=== PATIENT | male | born 1960 | race Caucasian/White ===

== ENCOUNTER → 2017-03-21 | Outpatient (CLI) | payer BC ==
[~2017-03-21] MED LIST: ACET-1311 PO; ALLO300T2 PO; CYAN100020 PO; FOLIC PO; GABA-113 PO; HYDR-5688 PO; LEVO50TA6 PO; METO50TA16 PO; NAPR1TAB9 PO; RISP0.5T10 PO; RSP1 PO; RXC5 PO; TRAZ50TA35 PO
[2017-03-21 13:22] LABS: BASO % 0.4 %; BASO ABS # 0.02 K/uL (0-0.2); COMPLETE YES; EOS % 1.8 %; HEMATOCRIT 43.4 % (42-52); IG% 0.2 %; LYMPH % 37.6 %; LYMPH ABS # 1.93 K/uL (1.2-3.4); MEAN CELL VOLUME 87.1 fL (80-100); MEAN CORPUSCULAR HEMOGLOBIN 28.9 pg (25-34); MEAN CORPUSCULAR HGB CONC 33.2 g/dl (32-36); MEAN PLATELET VOLUME 10.5 fL (7.4-10.4); MONO % 9.6 %; NEUT % 50.4 %; PLATELET COUNT 194 K/uL (130-400); RED BLOOD COUNT 4.98 M/uL (4.7-6.1); WHITE BLOOD COUNT 5.13 K/uL (4.8-10.8)
[2017-03-21 13:44] LABS: ALT/SGPT 22 U/L (12-78); AST/SGOT 15 U/L (15-37); BLOOD UREA NITROGEN 11 mg/dl (7-18); BUN/CREATININE RATIO 10.9 (10-20); CARBON DIOXIDE 27 mmol/L (21-32); CHLORIDE 109 mmol/L (98-107); GLUCOSE 85 mg/dl (70-99); POTASSIUM 3.8 mmol/L (3.5-5.1); SODIUM 142 mmol/L (136-145)
[2017-03-21 13:52] LABS: ALB/GLOB RATIO 1.2 (0.9-2); ALKALINE PHOSPHATASE 52 U/L (45-117); RHEUMATOID FACTOR < 10.0 U/mL (0-15)
[2017-03-26 16:22] LABS: 18KDIGG BAND NONREACTIVE (NONREACTIVE); 23KDIGG BAND NONREACTIVE (NONREACTIVE); 23KDIGM BAND NONREACTIVE (NONREACTIVE); 28KDIGG BAND NONREACTIVE (NONREACTIVE); 30KDIGG BAND NONREACTIVE (NONREACTIVE); 39KDIGG BAND NONREACTIVE (NONREACTIVE); 39KDIGM BAND NONREACTIVE (NONREACTIVE); 41KDIGG BAND REACTIVE (NONREACTIVE); 41KDIGM BAND NONREACTIVE (NONREACTIVE); 45KDIGG BAND NONREACTIVE (NONREACTIVE); 58KDIGG BAND NONREACTIVE (NONREACTIVE); 66KDIGG BAND NONREACTIVE (NONREACTIVE); 93KDIGG BAND NONREACTIVE (NONREACTIVE)
== END | disposition home or self-care (01) ==
LOC: C.LABMFLN 08:02
PROVIDERS: ATTEND Family Medicine
DX: M54.16 Radiculopathy, lumbar region (principal); M25.50 Pain in unspecified joint; R20.2 Paresthesia of skin; R53.83 Other fatigue

== ENCOUNTER → 2017-05-26 | Outpatient (CLI) | payer BC | END | disposition home or self-care (01) | LOC: C.LABMFLN 11:02 | PROVIDERS: ATTEND Family Medicine | DX: Z12.5 Encounter for screening for malignant neoplasm of prostate (principal) ==

== ENCOUNTER 2017-06-04 09:22 | Inpatient (IN) | payer BC, OTHER ==
[2017-05-14 12:13] VITALS: BMI 33.0
--- NOTE | 2017-05-14 12:49 | PAT Medication Instructions ---
Service Date May 14, 2017. Current Home Medication List Acetaminophen (Tylenol), 650 MG PO PRN Allopurinol (Zyloprim), 300 MG PO QAM Cyanocobalamin (Vitamin B12), 1,000 MCG PO QAM Gabapentin (Neurontin), 300 MG PO TID Hydrocodone/Acetaminophen 5MG/325MG ([place] 5MG/325MG), 1 TABLET PO QID PRN for N Levothyroxine Sodium (Levothyroxine Sodium), 1 TAB PO QAM Metoprolol Tartrate (Lopressor) (Lopressor), 50 MG PO QAM Naproxen (Aleve), 660 MG PO PRN Risperidone (Risperidone), 1 MG PO QAM Risperidone (Risperdal), 0.5 MG PO HS Trazodone Hcl (Trazodone), 150 MG PO HS [Folic], 400 MCG PO QAM Medication Instructions For Your Scheduled Surgery - Hold the following medications per surgeon's instructions: Naproxen (Aleve), 660 MG PO PRN - Hold the following medications the morning of surgery: [Folic], 400 MCG PO QAM Cyanocobalamin (Vitamin B12), 1,000 MCG PO QAM - Take the following medications the morning of surgery with a sip of water OTHERWISE NOTHING TO EAT OR DRINK AFTER MIDNIGHT: Hydrocodone/Acetaminophen 5MG/325MG ([place] 5MG/325MG), 1 TABLET PO QID PRN (may take if needed up to 4 hours prior to surgery) Acetaminophen (Tylenol), 650 MG PO PRN (may take if needed up to 4 hours prior to surgery) Gabapentin (Neurontin), 300 MG PO TID Allopurinol (Zyloprim), 300 MG PO QAM Levothyroxine Sodium (Levothyroxine Sodium), 1 TAB PO QAM Metoprolol Tartrate (Lopressor) (Lopressor), 50 MG PO QAM Risperidone (Risperidone), 1 MG PO QAM - Take the following medications as scheduled the night before surgery: Hydrocodone/Acetaminophen 5MG/325MG ([place] 5MG/325MG), 1 TABLET PO QID PRN Acetaminophen (Tylenol), 650 MG PO PRN Gabapentin (Neurontin), 300 MG PO TID Risperidone (Risperdal), 0.5 MG PO HS Trazodone Hcl (Trazodone), 150 MG PO HS If you have any questions please call us at [phone] or [phone] or [phone]
[2017-05-14 13:33] LABS: BASO % 0.4 %; BASO ABS # 0.03 K/uL (0-0.2); COMPLETE YES; EOS % 2.8 %; HEMATOCRIT 43.3 % (42-52); IG% 0.3 %; LYMPH % 30.4 %; LYMPH ABS # 2.05 K/uL (1.2-3.4); MEAN CELL VOLUME 87.7 fL (80-100); MEAN CORPUSCULAR HEMOGLOBIN 29.4 pg (25-34); MEAN CORPUSCULAR HGB CONC 33.5 g/dl (32-36); MONO % 5.5 %; NEUT % 60.6 %; PLATELET COUNT 207 K/uL (130-400); RED BLOOD COUNT 4.94 M/uL (4.7-6.1); WHITE BLOOD COUNT 6.75 K/uL (4.8-10.8)
--- NOTE | 2017-05-14 13:37 | DIAGNOSTIC IMAGING REPORT ---
TWO VIEW CHEST CLINICAL HISTORY: Preoperative examination. FINDINGS: PA and lateral chest radiographs are obtained. No prior studies are available for comparison at the time of dictation. The heart is mildly enlarged and there is atherosclerotic calcification of the thoracic aorta. The pulmonary vasculature is noncongested. The lungs and pleural spaces are clear. There is no pneumothorax. The bony thorax appears intact. IMPRESSION: Cardiac enlargement with no active disease in the chest. Electronically signed by: Ronnie Jade M.D. 05/14/2017 1:36 PM Dictated Date/Time: 05/14/2017 1:35 PM
[2017-05-14 13:52] LABS: BUN/CREATININE RATIO 11.2 (10-20); CREATININE 0.91 mg/dl (0.60-1.40); POTASSIUM 4.3 mmol/L (3.5-5.1)
[2017-05-14 13:55] LABS: URINE APPEARANCE CLEAR (CLEAR); URINE BILIRUBIN NEG (NEG); URINE COLOR YELLOW; URINE NITRITE NEG (NEG); URINE SPECIFIC GRAVITY 1.022 (1.000-1.030); UROBILINOGEN NEG (NEG); ZZUR CULT IF INDIC CLEAN CATCH NO
[2017-05-14 14:05] LABS: MANUAL MICROSCOPIC REQUIRED? NO; REVIEW REQ? NO
[2017-06-04] VITALS (9 sets, daily range): BP systolic 120–136; BP diastolic 68–85; PULSE 52–71; TEMP 36.3–36.7; O2SAT 92–100; Ht 175.3 cm; Wt 102.8 kg
[~2017-06-04] VITALS: Ht 175.3 cm; Wt 102.8 kg
[~2017-06-04 09:22] MED LIST changes: +CEFAZOLIN 2000 MG/60 ML D5W IV SCH; +LACTATED RINGER'S 1000ML 1,000 ML IV SCH; -RXC5 PO
[2017-06-04] MEDS ORDERED: BUPIVACAINE/EPINEPHRINE 0.5% MPF 1:200,000 30 ML VIAL ONE (09:51)
[2017-06-04] MEDS ORDERED: BACITRACIN 50000 UNIT VIAL ONE (09:51)
--- NOTE | 2017-06-04 09:51 | History & Physical Bridge Note ---
H&P Re-Evaluation Bridge Note: I have examined the patient, reviewed the History & Physical and in the interval since the performance of the History & Physical I have noted the following changes of clinical significance: No changes noted
--- NOTE | 2017-06-04 09:52 | History and Physical ---
History & Physical Date Jun 04, 2017. Chief Complaint Back and leg pain History of Present Illness The patient is a 57 year old male with complaints of back and leg pain Additional History Hepatic Disease: No Endocrine Disorder: No Kidney Disease: No Hypertension: No Heart Disease: No Bleeding Tendencies: No Infectious Diseases: No Allergies Coded Allergies: Statins (Unverified Allergy, Unknown, MUSCLE ACHES, 05/14/17) Home Medications Scheduled Acetaminophen (Tylenol), 650 MG PO PRN Allopurinol (Zyloprim), 300 MG PO QAM Cyanocobalamin (Vitamin B12), 1,000 MCG PO QAM Gabapentin (Neurontin), 300 MG PO TID Levothyroxine Sodium (Levothyroxine Sodium), 1 TAB PO QAM Metoprolol Tartrate (Lopressor) (Lopressor), 50 MG PO QAM Naproxen (Aleve), 660 MG PO PRN Risperidone (Risperidone), 1 MG PO QAM Risperidone (Risperdal), 0.5 MG PO HS Trazodone Hcl (Trazodone), 150 MG PO HS [Folic], 400 MCG PO QAM Scheduled PRN Hydrocodone/Acetaminophen 5MG/325MG ([place] 5MG/325MG), 1 TABLET PO QID PRN for N Physical Examination Skin: warm/dry, no rash Eyes: normal inspection, EOMI, sclerae normal ENT: normal ENT inspection, pharynx normal Head: normocephalic, atraumatic Neck: supple, no adenopathy, trachea midline Respiratory/Chest: lungs clear, normal breath sounds, no respiratory distress Cardiovascular: regular rate, rhythm, no edema, no murmur Abdomen / GI: normal bowel sounds, non tender Back: normal inspection Extremities: normal inspection, normal range of motion Neurologic/Psych: no motor/sensory deficits, alert, normal reflexes, oriented x 3 Diagnosis Lumbar spinal stenosis Plan of Treatment Lumbar decompression and fusion L5-S1
[2017-06-04] MEDS ORDERED: FENTANYL CITRATE INJ 50 MCG/1 ML 2 ML VIAL ONE ×3 (09:53→11:57)
[2017-06-04] MEDS ORDERED: MIDAZOLAM HCL 1 MG/ML 2ML VIAL ONE (09:53)
[2017-06-04] MEDS ORDERED: HYDROmorphone INJ 2 MG/ML SYR/VIAL ONE ×2 (10:49→12:18)
[2017-06-04] MEDS ORDERED: FLOSEAL HEMOSTATIC MATRIX 10ML TOP ONE (10:54)
[2017-06-04] MEDS ORDERED: HYDROmorphone INJ 1 MG/ML SYR IV PRN (11:15)
[2017-06-04] MEDS ORDERED: EpHEDrine SULFATE INJ 50 MG/ML AMP IV PRN (11:15)
[2017-06-04] MEDS ORDERED: ATROPINE SULFATE 0.1 MG/ML 5ML SYR IV PRN (11:15)
[2017-06-04] MEDS ORDERED: ONDANSETRON INJ 2 MG/ML 2 ML VIAL IV PRN ×2 (11:15→12:30)
[2017-06-04] MEDS ORDERED: SODIUM CHLORIDE 0.9% 1000ML 1,000 ML IV SCH (12:17)
[2017-06-04] MEDS ORDERED: LIDOCAINE HCL 2% 2 ML VIAL (20MG/ML) ONE (12:21)
[2017-06-04] MEDS ORDERED: GLYCOPYRROLATE INJ 0.2 MG/ML VIAL ONE (12:21)
[2017-06-04] MEDS ORDERED: KETOROLAC TROMETHAMINE 30 MG/ML VIAL ONE (12:21)
[2017-06-04] MEDS ORDERED: ROCURONIUM BROMIDE 10 MG/ML 5 ML VIAL IV ONE (12:21)
[2017-06-04] MEDS ORDERED: NEOSTIGMINE METHYLSULFATE 1 MG/ML 10ML VIAL ONE (12:21)
[2017-06-04] MEDS ORDERED: ONDANSETRON INJ 2 MG/ML 2 ML VIAL ONE ×2 (12:21)
[2017-06-04] MEDS ORDERED: PROPOFOL IV EMULSION 10 MG/ML 20 ML VIAL IV ONE (12:21)
[2017-06-04] MEDS ORDERED: DEXAMETHASONE SOD INJ 4 MG/ML VIAL ONE (12:21)
[2017-06-04] MEDS ORDERED: SOD PHOSPHATE/SOD BIPHOSPHATE ENEMA 132 ML BTL PR PRN (12:30)
[2017-06-04] MEDS ORDERED: hydrOXYzine HCL 25 MG TAB PO PRN (12:30)
[2017-06-04] MEDS ORDERED: NALOXONE HCL 0.4 MG/1 ML VIAL/CARP IV PRN ×2 (12:30)
[2017-06-04] MEDS ORDERED: DO NOT ADMINISTER FLU VACCINE PRN ×3 (12:30)
[2017-06-04] MEDS ORDERED: METOCLOPRAMIDE HCL INJ 5 MG/ML 2 ML VIAL IV PRN (12:30)
[2017-06-04] MEDS ORDERED: FAMOTIDINE 20 MG TAB PO PRN (12:30)
[2017-06-04] MEDS ORDERED: LORAZEPAM 0.5 MG TAB PO PRN (12:30)
[2017-06-04] MEDS ORDERED: DO NOT ADMINISTER PNEUMOCOCCAL VACCINE PRN ×2 (12:30)
[2017-06-04] MEDS ORDERED: HYDROmorphone HCL 0.5MG/ML 50 ML CASSETTE IV PRN (12:30)
[2017-06-04] MEDS ORDERED: ACETAMINOPHEN 500 MG TAB PO PRN (12:30)
[2017-06-04] MEDS ORDERED: PROMETHAZINE HCL INJ 12.5 MG in SODIUM CHLORIDE 0.9% 50ML 50 ML IV PRN (12:30)
[2017-06-04] MEDS ORDERED: ACETAMINOPHEN IV 100 ML IV PRN (12:30)
[2017-06-04] MEDS ORDERED: BISACODYL 10 MG SUPP PR PRN (12:30)
[2017-06-04] MEDS ORDERED: MAGNESIUM HYDROXIDE SUSP 30 ML UDC PO PRN (12:30)
[2017-06-04] MEDS ORDERED: LORAZEPAM INJ 0.5 MG in SYRINGE 0.75 ML IV PRN (12:30)
[2017-06-04] MEDS ORDERED: ALUMINUM/MAGNESIUM SUSP 30 ML UDC PO PRN (12:30)
--- NOTE | 2017-06-04 12:30 | [facility] Operative Report ---
Operative Report Operative Date Jun 04, 2017. Pre-Operative Diagnosis lumbar spinal stenosis Post-Operative Diagnosis lumbar spinal stenosis Procedure(s) Performed #1 lumbar decompression medial facetectomy foraminotomies L4 5 L5-S1. #2 posterior spinal fusion L5-S1. #3 placement posterior instrumentation L5-S1. #4 interbody fusion L5-S1. #5 placement peek cage 14 x 26 mm L5-S1. #6 placement of locally harvested morcellized autograft in the posterior gutters. #7 placement of osteo-amp in the interbody space and posterior lateral gutters. Surgeon Dr. Tessy Akers Text[employer] Cutting Machine Operator Surgeon(s) Rabia Dodd PA-C Estimated Blood Loss 175ml Findings Severe spinal stenosis Specimens none per surgeon Description of Procedure Patient was met with case discussed all questions are dressed. After informed consent he was taken to the operative suite underwent intubation placed in a prone position on the Fredo table on top Cesario frame. All bony prominences were well-padded eyes inspected to ensure there is no external pressure. This point the lumbar spine is prepped and draped nostril fashion. Sharp dissection with the assistance of Bovie cautery was performed onto an exposing the lamina and transverse processes of 5 and sacral alar bilaterally. From a caudal to cephalad fashion complete laminectomy of L5 partial laminectomy of L4 was performed addressing severe lateral recess and foraminal stenosis. Pedicle screws were then placed in the purposes sarthak placed. Through a transforaminal approach a right a complete discectomy was performed and plate created to subcortical bleeding bone and a 14 x 26 mm peek cage filled with ostial amp tapped in position. The rods were then compressed locked and final position bilaterally. The transverse processes of L5 and sacral alar burred to subcortical bleeding bone. The remaining bone graft was placed the posterior gutters. 15 round KATI drain inserted. Incision was then closed with 1 Vicryl in the fascia 2-0 Vicryl subcutaneous C 4 Monocryl for final skin closure Steri- Strip sterile dressing placed. Patient we can taken to PACU in a stable condition. Please note Jenni Eason was present at the entire procedure involved in patient positioning complex portions of the surgery and final skin closure. I attest to the content of the Intraoperative Record and any orders documented therein. Any exceptions are noted below.
[2017-06-04] MEDS ORDERED: HYDROmorphone HCL 0.5MG/ML 50 ML CASSETTE ONE ×2 (12:45→12:46)
[2017-06-04] MEDS: FENTANYL CITRATE INJ 50 MCG/1 ML 2 ML VIAL IV PRN ×2 (13:02→13:08)
--- NOTE | 2017-06-04 13:30 | DIAGNOSTIC IMAGING REPORT ---
Radiology LUMBAR SPINE 2 OR 3 VIEW CLINICAL HISTORY: 57 years-old Male presenting with L5-S1 DECOMPRESSION/FUSION. TECHNIQUE: 2 fluoroscopic spot image(s) obtained as part of an intraoperative procedure. COMPARISON: None. FINDINGS/IMPRESSION: Posterior bilateral transpedicular screw and sarthak fixation of L5-S1 with interbody spacer. Grossly normal anatomic alignment. Please see surgical report for further details. Fluoroscopy dosage (mGy): Not available. Fluoroscopy time: 17.6 seconds. Number of fluoroscopic spot images: 2. Electronically signed by: Tiago Pyle M.D. 06/04/2017 1:29 PM Dictated Date/Time: 06/04/2017 1:28 PM
--- NOTE | 2017-06-04 13:31 | Anesthesiology Progress Note ---
Anesthesia Post Op Note Date & Time Jun 04, 2017 at 13:31 Vital Signs Pain Intensity: 5 Vital Signs Past 12 Hours Date Time Temp Pulse Resp B/P (MAP) Pulse Ox O2 Delivery O2 Flow Rate FiO2 06/04/17 13:20 36.4 58 16 137/82 98 Nasal Cannula 4 06/04/17 13:10 61 14 138/86 99 Nasal Cannula 4 06/04/17 13:00 54 14 150/86 100 Oxymask 10 06/04/17 12:50 57 14 147/89 100 Oxymask 10 06/04/17 12:40 70 14 141/92 96 Oxymask 10 06/04/17 12:34 36 62 14 137/83 99 Oxymask 10 06/04/17 09:41 36.7 64 20 131/85 95 Notes Mental Status: alert / awake / arousable, participated in evaluation Pt Amnestic to Procedure: Yes Nausea / Vomiting: adequately controlled Pain: adequately controlled Airway Patency, RR, SpO2: stable & adequate BP & HR: stable & adequate Hydration State: stable & adequate Anesthetic Complications: no major complications apparent
[2017-06-04] MEDS: GABAPENTIN 300 MG CAP PO SCH ×2 (16:43→21:23)
[2017-06-04] MEDS: LACTATED RINGER'S 1000ML 1,000 ML IV SCH ×2 (16:44→21:24)
[2017-06-04] MEDS: DEXAMETHASONE INJ 6 MG in SYRINGE 0 ML IV SCH ×2 (16:44→23:36)
[2017-06-04] MEDS: CEFAZOLIN IV 2,000 MG in DEXTROSE 5% 50ML 50 ML IV SCH (18:11)
[2017-06-04] MEDS: DOCUSATE SODIUM/SENNA 50/8.6MG TAB PO SCH (21:23)
[2017-06-04] MEDS: TRAZODONE HCL 50 MG TAB PO SCH (21:24)
[2017-06-04] MEDS: RISPERIDONE 0.5 MG TAB PO SCH (21:24)
[2017-06-05] MEDS: LACTATED RINGER'S 1000ML 1,000 ML IV SCH (01:53)
[2017-06-05] MEDS: CEFAZOLIN IV 2,000 MG in DEXTROSE 5% 50ML 50 ML IV SCH (01:53)
[2017-06-05 03:50] VITALS: BP 125/75; PULSE 63; TEMP 36.5; O2SAT 93
[2017-06-05] MEDS: LEVOTHYROXINE 50 MCG TAB PO SCH (05:50)
[2017-06-05] MEDS ORDERED: OXYCODONE HCL IR 5 MG TAB (IMMEDIATE RELEASE) PO PRN (06:00)
[2017-06-05] MEDS ORDERED: DC PCA ONE (06:00)
[2017-06-05] MEDS ORDERED: HYDROmorphone INJ 0.5 MG/0.5 ML SYR IV PRN (06:00)
[2017-06-05] MEDS ORDERED: NURSING DECISION MEDICATION ORDER SCH (06:15)
[2017-06-05] MEDS: DEXAMETHASONE INJ 6 MG in SYRINGE 0 ML IV SCH (07:18)
[2017-06-05 07:31] VITALS: BP 124/73; PULSE 55; TEMP 36.6; O2SAT 94
[2017-06-05] MEDS ORDERED: RXC5 PO (07:33)
--- NOTE | 2017-06-05 07:33 | Discharge Instructions ---
Discharge Instructions Date of Service Jun 05, 2017. Admission Reason for Admission: Lumbar Spinal Stenosis Discharge Discharge Diagnosis / Problem: lumbar stenosis Discharge Goals Goal(s): Improve function Activity Recommendations Activity Limitations: per Instructions/Follow-up section . Instructions / Follow-Up Instructions / Follow-Up ACTIVITY RECOMMENDATIONS: SELF CARE INSTRUCTIONS AFTER CERVICAL FUSIONS 1. No smoking. Smoking drastically decreases the chance of a solid fusion. 2. No bending, lifting more than 5 pounds, or twisting (roll like a log when turning in bed). 3. You may shower 3 days after surgery. Thoroughly dry wound. Do not soak in the tub. 4. Cervical collar: Must be worn at all times including sleeping. You may remove the brace only to bath, eat and if you are sitting in a recliner. 5. Please walk as much as you can for exercise. Gradually increase the distance that you walk as your endurance increases. SPECIAL CARE INSTRUCTIONS: VERY IMPORTANT TO READ AND REVIEW A. Do not take any anti-inflammatory medications (i.e. Indocin, Advil, Aspirin, Naprosyn, Aleve, Motrin, etc.) as these may inhibit the chance of a solid fusion. Tylenol is okay to take. B. Your surgical incision has been closed with a cosmetic suture under the skin that will dissolve in about 6 weeks. In 14 days, you can use a pair of clean scissors and cut the suture that is left outside of the skin at the ends of your incision. C. Complications are uncommon, but please contact us if you have any signs or symptoms of: 1. wound infection (fever higher than 102.5 degrees F, redness, separation of wound, drainage, or increasing pain from the incision) 2. blood clots in legs (pain, swelling, redness and warmth in legs) 3. urinary tract infection (fever higher than 102.5 degrees, burning upon urination or increased frequency of urination) 4. nerve problems (inability to walk on your toes or heels, numbness, loss of bowel or bladder control) 5. any other symptoms that concern you. D. Please call the office at if you have any concerns or questions about your operation or recovery. MANAGING PAIN AFTER SPINAL SURGERY 1. Narcotic medication is intended for short-term use and will be provided for surgical pain. Surgical pain usually lasts for a period of 4-6 weeks. Narcotic medication includes Percocet, Vicodin, Darvocet, Tylenol #3 or Lortab. 2. Longer-term pain is more appropriately treated with non-narcotic medication such as Tylenol ES. 3. Muscle spasm is not appropriately treated with narcotics. Muscle relaxers such as Soma, Flexeril or Skelaxin can be used along with Tylenol ES. 4. Remember that we all live with some "aches and pains". This is not unusual or uncommon after an injury or as we get older. 5. We will provide appropriate medication within the normal guidelines of their prescribed use. We will also be very cautious and aware of potential abuse and extended duration of patients' medication needs. 6. Please allow 2-3 days to process refills. Prescriptions will not be mailed but must be picked up at the office. FOLLOW UP VISIT: Keep your scheduled follow-up appointment. Any questions, please call the office at . Current Hospital Diet Patient's current hospital diet: Regular Diet Discharge Diet Recommended Diet: Regular Diet Procedures Procedures Performed: #1 lumbar decompression medial facetectomy foraminotomies L4 5 L5-S1. #2 posterior spinal fusion L5-S1. #3 placement posterior instrumentation L5-S1. #4 interbody fusion L5-S1. #5 placement peek cage 14 x 26 mm L5-S1. #6 placement of locally harvested morcellized autograft in the posterior gutters. #7 placement of osteo-amp in the interbody space and posterior lateral gutters. Pending Studies Studies pending at discharge: no Medical Emergencies . Who to Call and When: Medical Emergencies: If at any time you feel your situation is an emergency, please call 911 immediately. . Non-Emergent Contact Non-Emergency issues call your: Primary Care Provider . "Provider Documentation" section prepared by Deo Akers. . VTE Core Measure Inpt VTE Proph given/why not?: Paulino Rushing, SCD's
[2017-06-05 08:23] LABS: COMPLETE YES; HEMATOCRIT 41.1 % (42-52); IG% 0.2 %; LYMPH % 5.7 %; LYMPH ABS # 0.81 K/uL (1.2-3.4); MEAN CELL VOLUME 87.1 fL (80-100); MEAN CORPUSCULAR HEMOGLOBIN 29.2 pg (25-34); MEAN CORPUSCULAR HGB CONC 33.6 g/dl (32-36); MONO % 3.6 %; NEUT % 90.5 %; PLATELET COUNT 201 K/uL (130-400); RED BLOOD COUNT 4.72 M/uL (4.7-6.1); WHITE BLOOD COUNT 14.25 K/uL (4.8-10.8)
[2017-06-05 08:58] LABS: BUN/CREATININE RATIO 14.2 (10-20); CALCIUM 9.3 mg/dl (8.5-10.1); CREATININE 0.97 mg/dl (0.60-1.40); POTASSIUM 3.9 mmol/L (3.5-5.1)
[2017-06-05] MEDS: METOPROLOL TARTRATE 50 MG TAB PO SCH (09:00)
[2017-06-05] MEDS: GABAPENTIN 300 MG CAP PO SCH ×3 (09:04→21:22)
[2017-06-05] MEDS: ALLOPURINOL 300 MG TAB PO SCH (09:04)
[2017-06-05] MEDS: RISPERIDONE 1 MG TAB PO SCH (09:04)
[2017-06-05 09:09] VITALS: BP 120/70; PULSE 58
[2017-06-05 11:49] VITALS: BP 131/71; PULSE 61; TEMP 36.4; O2SAT 97
[2017-06-05] MEDS ORDERED: KETOROLAC TROMETHAMINE 30 MG/ML VIAL IV PRN (12:15)
--- NOTE | 2017-06-05 12:22 | Anesthesiology Progress Note ---
Anesthesia Post Op Note Date & Time Jun 05, 2017 at 12:21 Vital Signs Pain Intensity: 2.0 Vital Signs Past 12 Hours Date Time Temp Pulse Resp B/P (MAP) Pulse Ox O2 Delivery O2 Flow Rate FiO2 06/05/17 11:49 36.4 61 16 131/71 (91) 97 Room Air 06/05/17 09:09 58 120/70 (87) 06/05/17 07:31 36.6 55 16 124/73 (90) 94 Room Air 06/05/17 07:15 Room Air 06/05/17 03:50 36.5 63 16 125/75 (92) 93 Room Air Notes Mental Status: alert / awake / arousable, participated in evaluation Pt Amnestic to Procedure: Yes Nausea / Vomiting: adequately controlled Pain: adequately controlled Airway Patency, RR, SpO2: stable & adequate BP & HR: stable & adequate Hydration State: stable & adequate Anesthetic Complications: no major complications apparent
--- NOTE | 2017-06-05 13:51 | Progress Note ---
Progress Note Date of Service Jun 05, 2017. Progress Note Patient's back pain is controlled leg pain improved signs stable. KATI drain decreased improperly. Exam is good strength testing appears comfortable. Assessment status post lumbar depression fusion replant this time we'll continue to advance physical therapy and consider discharge home tomorrow.
[2017-06-05 15:01] VITALS: BP 146/79; PULSE 65; TEMP 36.7; O2SAT 97
[2017-06-05] MEDS: DOCUSATE SODIUM/SENNA 50/8.6MG TAB PO SCH (21:44)
[2017-06-05] MEDS: RISPERIDONE 0.5 MG TAB PO SCH (21:44)
[2017-06-05] MEDS: TRAZODONE HCL 50 MG TAB PO SCH (21:44)
[2017-06-05 23:04] VITALS: BP 130/72; PULSE 67; TEMP 36.5; O2SAT 93
[2017-06-06] MEDS: POLYETHYLENE (MIRALAX) 17 GM PACK PO SCH ×2 (05:39→11:55)
[2017-06-06] MEDS: LEVOTHYROXINE 50 MCG TAB PO SCH (05:39)
[2017-06-06 07:41] VITALS: BP 144/84; PULSE 60; TEMP 36.5; O2SAT 95
[2017-06-06] MEDS: ALLOPURINOL 300 MG TAB PO SCH (08:11)
[2017-06-06] MEDS: RISPERIDONE 1 MG TAB PO SCH (08:11)
[2017-06-06] MEDS: METOPROLOL TARTRATE 50 MG TAB PO SCH (08:11)
[2017-06-06] MEDS: GABAPENTIN 300 MG CAP PO SCH ×2 (08:11→13:31)
[2017-06-06 10:07] VITALS: BP 144/84; PULSE 60; TEMP 36.5; O2SAT 95
--- NOTE | 2017-06-06 12:35 | Discharge Summary ---
Orthopedic Discharge Summary Admission Date/Reason Jun 04, 2017 at 09:30 Lumbar Spinal Stenosis. Discharge Date/Disposition Jun 06, 2017 Home with services Diagnosis Principal Diagnosis: Lumbar spinal stenosis Admission Physical Exam As per Admitting History & Physical. Hospital Course Patient underwent lumbar decompression fusion tolerated this well as taken to the orthopedic 4 postop we. Postop day #1 is up and ambulatory leg symptoms markedly improved progressed to postoperative day #2 and was subsequently discharged home. Discharge orders and instructions can be found the chart for further review. Discharge Instructions Please refer to the electronic Patient Visit Report (Discharge Instructions) for additional information.
== END 2017-06-06 13:54 | disposition home health service (06) | DRG 460 ==
LOC: C.ACU 09:22 → C.3E 09:30 → ENRESERV 13:08
PROVIDERS: ADMIT Orthopaedic Surgery Orthopaedic Surgery of the Spine; ATTEND Orthopaedic Surgery Orthopaedic Surgery of the Spine
PROC: 0ST40ZZ Resection of Lumbosacral Disc, Open Approach (ICD-10-PCS; principal; 2017-06-04 12:15)
PROC: 0SG30A1 (ICD-10-PCS; principal; 2017-06-04 12:15)
DX: M48.06 Spinal stenosis, lumbar region (principal); Z79.899 Other long term (current) drug therapy

== ENCOUNTER → 2017-11-19 | Outpatient (CLI) | payer BC ==
[~2017-11-19] MED LIST changes: -CEFAZOLIN 2000 MG/60 ML D5W IV SCH; -LACTATED RINGER'S 1000ML 1,000 ML IV SCH; -NAPR1TAB9 PO; +RXC5 PO
[2017-11-19 12:22] LABS: HEMATOCRIT 42.2 % (42-52); HEMOGLOBIN 14.5 g/dL (14.0-18.0); IG# 0.02 K/uL (0.00-0.02); LYMPH % 14.4 %; LYMPH ABS # 1.65 K/uL (1.2-3.4); MEAN CELL VOLUME 87.4 fL (80-100); MEAN CORPUSCULAR HGB CONC 34.4 g/dl (32-36); MEAN PLATELET VOLUME 10.8 fL (7.4-10.4); MONO % 4.7 %; MONO ABS # 0.54 K/uL (0.11-0.59); NEUT % 80.7 %; NEUT ABS # 9.21 K/uL (1.4-6.5); PLATELET COUNT 209 K/uL (130-400); RED CELL DISTRIBUTION WIDTH CV 13.2 % (11.5-14.5); RED CELL DISTRIBUTION WIDTH SD 42.2 fL (36.4-46.3); WHITE BLOOD COUNT 11.42 K/uL (4.8-10.8)
[2017-11-19 13:21] LABS: ALBUMIN 3.9 gm/dl (3.4-5.0); ALT/SGPT 22 U/L (12-78); AST/SGOT 17 U/L (15-37); BLOOD UREA NITROGEN 18 mg/dl (7-18); CALCIUM 8.8 mg/dl (8.5-10.1); CARBON DIOXIDE 25 mmol/L (21-32); CHOLESTEROL 229 mg/dl (0-200); CREATININE 0.96 mg/dl (0.60-1.40); GLUCOSE 95 mg/dl (70-99); POTASSIUM 3.7 mmol/L (3.5-5.1); SODIUM 139 mmol/L (136-145)
[2017-11-19 13:30] LABS: ALKALINE PHOSPHATASE 67 U/L (45-117); LDL CHOLESTEROL CALCULATED 149 mg/dl
== END | disposition home or self-care (01) ==
LOC: C.LABMFLN 08:55
PROVIDERS: ATTEND Family Medicine
DX: E78.00 Pure hypercholesterolemia, unspecified (principal); I10 Essential (primary) hypertension; E03.9 Hypothyroidism, unspecified; E53.8 Deficiency of other specified B group vitamins

== ENCOUNTER 2019-09-15 11:46 | Inpatient (IN) ==
--- NOTE | 2019-08-26 12:42 | PAT Medication Instructions ---
Medication Instructions Date of Service August 26, 2019 Home Medications Medication Instructions Recorded temazepam 30 mg capsule 30 mg PO HS #90 cap 05/28/19 allopurinol 300 mg tablet 300 mg PO QAM #90 tab 06/07/19 levothyroxine 50 mcg tablet 50 mcg PO QAM 90 Days #90 tab 07/12/19 cyanocobalamin (vitamin B-12) 1,000 mcg PO QAM folic acid 0.4 mg PO QAM temazepam 30 mg capsule 30 mg PO HS allopurinol 300 mg tablet 300 mg PO QAM levothyroxine 50 mcg tablet 50 mcg PO QAM metoprolol succinate 25 mg PO QAM risperidone 3 mg PO QAM rosuvastatin 10 mg PO QDD trazodone 75 mg PO HS DO NOT take the morning of surgery cyanocobalamin (vitamin B-12) 1,000 mcg PO QAM folic acid 0.4 mg PO QAM Take morning of surgery With a small sip of water, OTHERWISE NOTHING TO EAT OR DRINK AFTER MIDNIGHT: allopurinol 300 mg tablet 300 mg PO QAM levothyroxine 50 mcg tablet 50 mcg PO QAM metoprolol succinate 25 mg PO QAM risperidone 3 mg PO QAM Take evening before surgery temazepam 30 mg capsule 30 mg PO HS rosuvastatin 10 mg PO QDD trazodone 75 mg PO HS Other Notes If you have any questions please call us at [phone] or [phone] or [phone] or [phone]
--- NOTE | 2019-09-02 10:19 | Anesthesiology Consultation ---
Date of Service September 02, 2019 Assessment & Plan (1) Encounter for pre-operative examination: - Awaiting review of preop testing (labs, EKG, CXR). Chart Review Chart Review: Patient seen in Pre Admission Testing Teaching & Discussion Pre-Anesthesia Teaching/Discussion Notes: Instructed NPO after midnight before surgery,except medications with 15 cc of water. Medication instructions provided according to the PAT guidelines. History Surgery Operation Date: 09/15/19 14:35 Proposed Procedures p L4-L5 Decompression Fusion L5-S1 Hardware Removal, Spinal Cord Monitoring - Deo Akers DO Height/Weight Height: 5 ft 10 in Weight: 114.4 kg Allergies Allergy/AdvReac Type Severity Reaction Status Date / Time [id number] Reductase Allergy Unknown MUSCLE Verified 08/26/19 08:10 Inhibitor ACHES Medications Home Medications Medication Instructions Recorded Confirmed Last Taken cyanocobalamin (vitamin B-12) 1,000 mcg PO QAM #0 05/14/17 08/26/19 06/08/18 08:00 folic acid 0.4 mg PO QAM #0 05/14/17 08/26/19 06/08/18 08:00 allopurinol 300 mg tablet 300 mg PO QAM #90 tab 06/07/19 08/26/19 Unknown levothyroxine 50 mcg tablet 50 mcg PO QAM 90 Days #90 tab 07/12/19 08/26/19 Unknown metoprolol succinate 25 mg PO QAM 08/26/19 08/26/19 Unknown risperidone 3 mg PO QAM 08/26/19 08/26/19 Unknown rosuvastatin 10 mg PO QDD 08/26/19 08/26/19 Unknown trazodone 75 mg PO HS 08/26/19 08/26/19 Unknown temazepam 30 mg capsule 30 mg PO HS #90 cap 08/27/19 Unknown Past Medical History Medical History Anxiety Depression Gout Hypertension Hypothyroidism Lumbar stenosis with neurogenic claudication Obesity Osteoarthritis Exercise / Class Metabolic Activity II 4-5 Yardwork/Stairs/Walk up hill Past Family History Family History Other Heart disease Past Surgical History Surgical History History of arthroscopy R/L KNEE History of cardiac cath 04/2018 ([facility])= NO STENTS History of carpal tunnel release R/L History of colonoscopy History of dental surgery History of lumbar fusion L5-S1 decompression/fusion: Grade view 1, MAC#3, ETT 8.0 at [facility] History of tonsillectomy History of total knee replacement B/L TKA: 06/11/18: SAB X3 + PNB, Paramedial level L3 (attempt x 2 midline without success) Hx of basal cell carcinoma excision [facility] Hx of decompression of ulnar nerve RIGHT Hx of rotator cuff surgery LEFT Past Anesthesia History No Hx of Anesthesia Complications and No Family Hx of Anesthesia Complications History of PONV No Hx of PONV and No Hx of Motion Sickness Social History Smoking Status: Never smoker Do You Dip or Chew Tobacco: No Hx Alcohol Use: Yes Alcohol type: beer alcohol intake frequency: 3 or more drinks per day (2-3 beers/night during weekdays, 4-5 beers throughout the day during weekends) Hx Substance Use: No substance use type: does not use Review of Systems Patient denies chest pain, shortness of breath, dyspnea on exertion, reflux, cough, wheezing, palpitations. Physical Exam Vital Signs VITALS BP 121/78 P 55 TEMP 98.0 SP02 96%RA RESP 18 PHYSICAL Full neck and c-spine range of motion. Full TMJ range of motion. TMD3.5 finger breaths Mallampati Score 3 Dentition: intact, temporary crown on upper left side (permanent to be placed 09/09/18- patient states he will make surgeon's office aware) upper front crown, lower front permanent implant Lungs: clear throughout to auscultation Cardiac: regular rate and rhythm, no murmurs noted Spine: normal Carotid arteries: negative bruit Extremities: no edema Testing Stress Test Date: 03/09/18 Type: DSE Resting EF: 64% Resting LV Function: mildly abnormal (Grade I) Normal rate and BP response to dobutamine infustion, but did have chest discomfort during peak infusion. All discomfort resolved in recovery. No significant ST changes noted during peak infusion. Occasional PVC's were noted with stress. Occasional PAC's were noted during stress. The stress test was terminated due to target heart rate being achieved. Mild TR Cardiac Catheterization Date: 04/09/18 Mild luminal irregularities in RCA. No obstructive coronary artery disease. S/P uncomplicated right radial artery access.
--- NOTE | 2019-09-02 11:04 | XRay Report ---
XR chest Pre-admission PA/Lat CLINICAL HISTORY: Preoperative chest COMPARISON STUDY: 05/18/2018 FINDINGS: The heart is the upper limits of normal in size. There is no failure. There is no focal pul monary consolidation. There are no pleural effusions. Degenerative changes are present within the sung ruthie spine.[ IMPRESSION: No active disease in the chest. ACT 112: Negative or not required by law. Electronically signed by: Jeremiah Lucero M.D. 09/02/2019 11:02 AM
[2019-09-02 12:35] LABS: Appearance Urine Clear (Clear); Bilirubin Urine Negative (Negative); Blood Urine Negative (Negative); Color Urine Yellow; Glucose Urine UA Negative (Negative); Ketones Urine Negative (Negative); Leukocyte Esterase Urine Negative (Negative); Nitrite Urine Negative (Negative); Protein Urine Negative (Negative); Specific Gravity Urine 1.006 (1.000-1.030); Urobilinogen Urine Negative (Negative)
[2019-09-02 12:36] LABS: Basophils # (auto) 0.02 K/uL (0-0.2); Basophils % (auto) 0.4 %; Eosinophils # (auto) 0.22 K/uL (0-0.5); Eosinophils % (auto) 4.6 %; Immature Granulocytes # (auto) 0.01 K/uL (0.00-0.02); Immature Granulocytes % (auto) 0.2 %; Lymphocytes # (auto) 0.69 K/uL (1.2-3.4); Lymphocytes % (auto) 14.4 %; Mean Corpuscular Hemoglobin 30.4 pg (25-34); Mean Corpuscular Hgb Conc 34.1 g/dL (32-36); Mean Corpuscular Volume 89.2 fL (80-100); Mean Platelet Volume 10.3 fL (7.4-10.4); Monocytes # (auto) 0.32 K/uL (0.11-0.59); Monocytes % (auto) 6.7 %; Neutrophils # (auto) 3.53 K/uL (1.4-6.5); Neutrophils % (auto) 73.7 %; Platelet Count 188 K/uL (130-400); RDW Coefficient of Variation 12.6 % (11.5-14.5); RDW Standard Deviation 40.6 fL (36.4-46.3); Red Blood Count 4.93 M/uL (4.7-6.1); White Blood Count 4.79 K/uL (4.8-10.8)
[2019-09-02 12:42] LABS: BUN Creatinine Ratio 11.6 (10-20); Calcium 8.9 mg/dl (8.5-10.1); Creatinine Clr Calc Pharmacy 97.3 ml/min; Est GFR (African American) 92.6; Est GFR (Non-African American) 79.9; Potassium 4.1 mmol/L (3.5-5.1)
[2019-09-02 12:48] LABS: Partial Thromboplastin Time 25.9 Seconds (21.0-31.0); Prothrombin Time 10.6 Seconds (9.0-12.0)
[~2019-09-15 11:46] MED LIST changes: -ACET-1311 PO; +ACETAMINOPHEN 500 MG TAB PO SCH; -ALLO300T2 PO; +CEFAZOLIN 2000MG 2,000 MG/15 ML SYR IV SCH; -CYAN100020 PO; +CeleBREX 200 MG CAP PO SCH; -FOLIC PO; -GABA-113 PO; +GABAPENTIN 600 MG DOSE PO SCH; -HYDR-5688 PO; -LEVO50TA6 PO; +LR 15ML/HR IV SCH; -METO50TA16 PO; -RISP0.5T10 PO; -RSP1 PO; -RXC5 PO; -TRAZ50TA35 PO
[2019-09-15] MEDS ORDERED: MIDAZOLAM HCL 1 MG/ML 2ML VIAL ONE (12:52)
[2019-09-15] MEDS ORDERED: fentaNYL citrate 100 MCG/2 ML VIAL ONE (12:52)
--- NOTE | 2019-09-15 12:58 | History & Physical Bridge Note ---
Date of Service September 15, 2019 History & Physical Bridge Note I have examined the patient, reviewed the History & Physical and in the interval since the performance of the History & Physical I have noted the following changes of clinical significance: no changes noted
--- NOTE | 2019-09-15 12:59 | History & Physical Report ---
Date of Service September 15, 2019 Assessment & Plan (1) Neurogenic claudication due to lumbar spinal stenosis: L4-L5 decompression fusion L5-S1 hardware removal Present on Admission?: Yes History of Present Illness Chief Complaint: Back and leg pain Primary Care Provider: Ronnie Candelaria MD This is a 59-year-old male who presents with worsening back and leg pain. Failing extensive course of nonoperative care is here for surgical invention. Allergies Allergy/AdvReac Type Severity Reaction Status Date / Time Vhclvus-Rqt-Aza Reductase AdvReac Intermediate MUSCLE Verified 09/15/19 12:10 Inhibitor ACHES Home Medications Home Medications Medication Instructions Recorded Confirmed Type cyanocobalamin (vitamin B-12) 1,000 mcg PO QAM #0 05/14/17 09/15/19 History folic acid 0.4 mg PO QAM #0 05/14/17 09/15/19 History allopurinol 300 mg tablet 300 mg PO QAM #90 tab 06/07/19 09/15/19 Rx levothyroxine 50 mcg tablet 50 mcg PO QAM 90 Days #90 tab 07/12/19 09/15/19 Rx metoprolol succinate 25 mg PO QAM 08/26/19 09/15/19 History risperidone 3 mg PO QAM 08/26/19 09/15/19 History rosuvastatin 10 mg PO QDD 08/26/19 09/15/19 History trazodone 75 mg PO HS 08/26/19 09/15/19 History temazepam 30 mg capsule 30 mg PO HS #90 cap 08/27/19 09/15/19 Rx kfyhxirg-lelazvggo-uwvclfbzc 3.5 4 drops OT Q8H #10 ml 09/06/19 09/15/19 Rx mg/mL-10,000 unit/mL-1 % ear solution Past Med/Surg History Medical History (Updated 09/15/19 @ 12:58 by Deo Akers DO) Anxiety Depression Gout Hypertension Hypothyroidism Lumbar stenosis with neurogenic claudication Obesity Osteoarthritis Surgical History (Updated 09/15/19 @ 12:13 by Melisa Lopes RN) History of arthroscopy R/L KNEE [place] [place] History of carpal tunnel release R/L History of colonoscopy History of dental surgery 1st week of Sep 2019- crown placed History of lumbar fusion L5-S1 decompression/fusion: Grade view 1, MAC#3, ETT 8.0 at [facility] History of tonsillectomy History of total knee replacement B/L TKA: 06/11/18: SAB X3 + PNB, Paramedial level L3 (attempt x 2 midline without success) Hx of basal cell carcinoma excision [place] [facility] Hx of decompression of ulnar nerve RIGHT Hx of rotator cuff surgery LEFT Family History Other Heart disease Social History Preferred Language: Georgian Communication Ability: Effective Visual Impairment: No Limitations Beliefs That Will Affect Care: None Current Living Situation: Spouse Feels Safe at Home: Yes Safety Concerns: Feels Safe At This Time Smoking Status: Never smoker Do You Dip or Chew Tobacco: No ; Second Hand Exposure: No ; Hx Alcohol Use: Yes Alcohol type: beer Hx Substance Use: No Physical Exam Physical Exam: Patient is alert and oriented neurologically intact. Results & Data Vital Signs (Past 12 Hours) Vital Signs Temp Pulse Resp BP Pulse Ox 09/15/19 12:16 36.5 C 63 20 124/85 96
[2019-09-15] MEDS ORDERED: BUPIVACAINE/EPINEPHRINE 0.5% MPF 1:200,000 10 ML VIAL ONE (13:12)
[2019-09-15] MEDS ORDERED: BACITRACIN INJ 50,000 UNIT VIAL ONE (13:12)
[2019-09-15] MEDS ORDERED: fentaNYL citrate 100 MCG/2 ML VIAL IV PRN (13:20)
[2019-09-15] MEDS ORDERED: ePHEDrine sulfate 50 MG/ML AMP IV PRN (13:20)
[2019-09-15] MEDS ORDERED: ONDANSETRON INJ 2 MG/ML 2 ML VIAL IV PRN ×2 (13:20→17:15)
[2019-09-15] MEDS ORDERED: HYDROmorphone INJ 2 MG/ML SYR/VIAL IV PRN (13:20)
[2019-09-15] MEDS ORDERED: ATROPINE SULFATE 0.1 MG/ML 10ML SYR IV PRN (13:20)
[2019-09-15] MEDS ORDERED: HYDROmorphone INJ 2 MG/ML SYR/VIAL ONE (13:50)
[2019-09-15] MEDS ORDERED: FLOSEAL HEMOSTATIC MATRIX 10ML TOP ONE (14:16)
[2019-09-15] MEDS ORDERED: ONDANSETRON INJ 2 MG/ML 2 ML VIAL ONE (15:15)
[2019-09-15] MEDS ORDERED: PROPOFOL IV EMULSION 10 MG/ML 20 ML VIAL IV ONE (15:15)
[2019-09-15] MEDS ORDERED: DEXAMETHASONE SOD INJ 4 MG/ML VIAL ONE (15:15)
[2019-09-15] MEDS ORDERED: LIDOCAINE HCL 2% 2 ML VIAL/AMP(20MG/ML) INFIL ONE (15:15)
[2019-09-15] MEDS ORDERED: ROCURONIUM BROMIDE 10 MG/ML 5 ML VIAL ONE (15:16)
[2019-09-15] MEDS ORDERED: PHENYLEPHRINE HCL 10 MG/ML VIAL ONE (15:16)
[2019-09-15] MEDS ORDERED: NEOSTIGMINE METHYLSULFATE 1 MG/ML 10ML VIAL ONE (15:16)
[2019-09-15] MEDS ORDERED: ePHEDrine sulfate 50 MG/ML AMP ONE (15:16)
[2019-09-15] MEDS ORDERED: GLYCOPYRROLATE 0.2 MG/ML VIAL ONE (15:16)
--- NOTE | 2019-09-15 15:25 | Operative Report ---
Post Operative Report Pre & Post Diagnosis Operation Date: 09/15/19 13:55 Pre-Op Diagnosis: Neurogenic claudication due to lumbar spinal stenosis Post-Op Diagnosis: Neurogenic claudication due to lumbar spinal stenosis I identified the patient and participated in the time-out.: Yes Procedure Operation Date: 09/15/19 13:55 Actual Procedures #1 removal of posterior instrumentation L5-S1. #2 expiration fusion L5-S1. #3 lumbar decompression with bilateral medial facetectomies and foraminotomies L3-4 L4-5. #4 posterior spinal fusion L4-5. #5 placement posterior instrumentation L4-5. #6 interbody fusion L4-5. #7 placement of peek cage 14 x 26 mm at L4-5. #8 placement locally harvested morselized autograft in the posterior lateral gutters. #9 placement infuse collagen sponge combined master graft in the posterior lateral gutters and ostial amp and interbody space. Surgeon Deo Akers, DO Flanging Operator Jenni Eason Estimated Blood Loss 100 Findings See Below Patient is 5 foot 10 inches tall weighing over 112kg with a BMI in excess of 35. The patient's body habitus did add significant technical difficulty adding at least 50% increase in operative time. Specimens None Indications This is a 59-year-old male that presents with above-mentioned diagnosis after failing extensive course of nonoperative care like to undergo above-mentioned procedure. Description of Procedure Patient was met with identified informed consent obtained. Patient was then taken to the operative suite underwent an patient placed in a prone position the Fredo table on top of the Cesario frame. All bony prominences well-padded eyes inspected to ensure no external pressure placed upon the peer at this point the lumbar spine is prepped and draped in a sterile fashion. Sharp dissection with the assistance of Bovie cautery was performed down to and exposing the lamina and transverse processes of L4 and instrumentation at L5 and S1 levels bilaterally. Then proceeded move the hardware bilaterally explore the fusion mass noting it to be intact. Then performed a complete laminectomy of L4 partial laminectomy of L3 including bilateral medial facetectomies foraminotomies addressing severe spinal stenosis. Pedicle screws were then placed in L4 and L5 bilaterally with assistance of fluoroscopy the purposes sarthak placed. By way of a transforaminal approach on the right a complete discectomy was performed endplates curetted to subcortical bleeding bone and a 14 x 26 mm peek cage with osteo-bone graft tapped in position. The rods were then compressed locked into final position bilaterally. The transverse processes of L4 and L5 bur to subcortical bleeding bone. Infuse collagen sponge master graft local autograft placed in the posterior lateral gutters. 15 round KATI drain inserted. The incision was then closed with 1 Vicryl in the fascia 2-0 Vicryl subcutaneously and 4 Monocryl for final skin closure. Steri-Strip sterile dressings placed. Patient will continue to PACU stable condition. Please note spinal cord monitoring was utilized that the procedure no changes noted. Lastly Jenni Eason was present at the entire procedure involved the patient positioning complex portions of the surgery and final skin closure. I attest to the content of the Intraoperative Record and any orders documented therein. Any exceptions are noted below.
--- NOTE | 2019-09-15 15:34 | Fluoroscopy Report ---
FL lumbar spine 2-3V CLINICAL HISTORY: L4-L5 DECOMPRESSION AND FUSION L5-S1 HARDWARE REMOVAL COMPARISON STUDY: None FLUOROSCOPY TIME: 17 seconds NUMBER OF FLUOROSCOPIC IMAGES: 2 FINDINGS: Findings consistent with lumbar laminectomy and fusion from L4 through S1. This bases are p resent at L4-L5 and L5-S1. Disc spaces and L5-S1 are slightly to left of midline. There apparently was an L5-S1 hardware removal procedure. IMPRESSION: Image intensifier support for lumbar laminectomy and fusion procedures. ACT 112: Negative or not required by law. The above report was generated using voice recognition software. It may contain grammatical, syntax or spelling errors. Electronically signed by: Dereck Lock M.D. 09/15/2019 3:33 PM
--- NOTE | 2019-09-15 16:17 | Anesthesiology Progress Note ---
Date of Service September 15, 2019 Anesthesia Post Procedure Vital Signs Vital Signs: Temp Pulse Pulse Resp BP Pulse Ox 09/15/19 16:05 65 12 137/85 99 09/15/19 15:55 73 14 148/95 H 98 09/15/19 15:46 36.0 C L 69 17 180/104 H 97 09/15/19 12:16 36.5 C 63 20 124/85 96 Pain Intensity Lower Back: Pain Intensity: 6 Right Leg: Pain Intensity: 5 Transfer of Care Handoff Completed per policy Notes Mental Status: alert / awake / arousable Patient Amnestic to Procedure: Yes Nausea / Vomiting: adequately controlled Pain: adequately controlled Airway Patency, RR, SpO2: stable & adequate BP & HR: stable & adequate Hydration State: stable & adequate Anesthetic Complications: no major complications apparent
[2019-09-15] MEDS ORDERED: HYDROmorphone INJ 1 MG/ML SYRINGE IV PRN (17:15)
[2019-09-15] MEDS ORDERED: MAGNESIUM HYDROXIDE SUSP 30 ML UDC PO PRN (17:15)
[2019-09-15] MEDS ORDERED: ACETAMINOPHEN 500 MG TAB PO PRN (17:15)
[2019-09-15] MEDS ORDERED: ALUMINUM/MAGNESIUM SUSP 30 ML UDC PO PRN (17:15)
[2019-09-15] MEDS ORDERED: bisacodyL 10 MG SUPP PR PRN (17:15)
[2019-09-15] MEDS ORDERED: OXYCODONE HCL IR 5 MG TAB (IMMEDIATE RELEASE) PO PRN (17:15)
[2019-09-15] MEDS ORDERED: LORazepam 0.5 MG/1 ML VIAL IV PRN (17:15)
[2019-09-15] MEDS ORDERED: ONDANSETRON 4 MG OD TAB PO PRN (17:15)
[2019-09-15] MEDS ORDERED: LORazepam 0.5 MG TAB PO PRN (17:15)
[2019-09-15] MEDS ORDERED: ACETAMINOPHEN 1,000 MG/100 ML VIAL IV PRN (17:15)
[2019-09-15] MEDS ORDERED: DO NOT ADMINISTER FLU VACCINE PRN (17:15)
[2019-09-15] MEDS ORDERED: NALOXONE HCL 0.4 MG/1 ML VIAL/CARP IV PRN (17:15)
[2019-09-15] MEDS ORDERED: PROMETHAZINE HCL 12.5 MG in SODIUM CHLORIDE 0.9% 50 ML IV PRN (17:15)
[2019-09-15] MEDS ORDERED: FAMOTIDINE 20 MG TAB PO PRN (17:15)
[2019-09-15] MEDS ORDERED: HYDROmorphone INJ 0.5 MG/0.5 ML SYR IV PRN (17:15)
[2019-09-15] MEDS ORDERED: SOD PHOSPHATE/SOD BIPHOSPHATE ENEMA 132 ML BTL PR PRN (17:15)
[2019-09-15] MEDS ORDERED: METOCLOPRAMIDE HCL INJ 5 MG/ML 2 ML VIAL IV PRN (17:15)
[2019-09-15] MEDS ORDERED: DO NOT ADMINISTER PNEUMOCOCCAL VACCINE PRN (17:15)
[2019-09-15] MEDS: LACTATED RINGER'S 1,000 ML IV SCH ×2 (18:23→23:51)
[2019-09-15] MEDS: ROSUVASTATIN CALCIUM 10 MG TAB PO SCH (18:23)
[2019-09-15] MEDS: KETOROLAC 30 MG/ML VIAL IV SCH ×2 (18:23→23:52)
[2019-09-15] MEDS: TEMAZEPAM 15 MG CAPSULE PO SCH (21:09)
[2019-09-15] MEDS: CEFAZOLIN 2000MG 2,000 MG/15 ML SYR IV SCH (21:09)
[2019-09-15] MEDS: TRAZODONE HCL 50 MG TAB PO SCH (21:09)
[2019-09-15] MEDS: DOCUSATE SODIUM/SENNA 50/8.6MG TAB PO SCH (21:09)
[2019-09-15] MEDS: TRAMADOL HCL 50 MG TABLET PO PRN (21:54)
[2019-09-16] MEDS: POLYETHYLENE (MIRALAX) 17 GM PACK PO SCH ×4 (05:35→23:57)
[2019-09-16] MEDS: KETOROLAC 30 MG/ML VIAL IV SCH ×2 (05:35→11:45)
[2019-09-16] MEDS: CEFAZOLIN 2000MG 2,000 MG/15 ML SYR IV SCH (05:36)
[2019-09-16] MEDS: LEVOTHYROXINE SODIUM 50 MCG TABLET PO SCH (05:36)
[2019-09-16] MEDS: LACTATED RINGER'S 1,000 ML IV SCH ×2 (06:21→20:55)
[2019-09-16 06:48] LABS: Hematocrit (blood only) 38.6 % (42-52); Hemoglobin 13.3 g/dL (14.0-18.0); Immature Granulocytes # (auto) 0.02 K/uL (0.00-0.02); Immature Granulocytes % (auto) 0.2 %; Lymphocytes # (auto) 0.52 K/uL (1.2-3.4); Lymphocytes % (auto) 4.5 %; Mean Corpuscular Hemoglobin 30.2 pg (25-34); Mean Corpuscular Hgb Conc 34.5 g/dL (32-36); Mean Corpuscular Volume 87.7 fL (80-100); Mean Platelet Volume 9.9 fL (7.4-10.4); Monocytes % (auto) 4.4 %; Neutrophils # (auto) 10.43 K/uL (1.4-6.5); Neutrophils % (auto) 90.9 %; Platelet Count 186 K/uL (130-400); RDW Coefficient of Variation 12.4 % (11.5-14.5); RDW Standard Deviation 39.9 fL (36.4-46.3); White Blood Count 11.47 K/uL (4.8-10.8)
[2019-09-16 07:19] LABS: BUN Creatinine Ratio 13.7 (10-20); Calcium 8.7 mg/dl (8.5-10.1); Creatinine Clr Calc Pharmacy 98.6 ml/min; Est GFR (African American) 94.9; Est GFR (Non-African American) 81.9; Potassium 4.2 mmol/L (3.5-5.1)
[2019-09-16] MEDS: risperiDONE 3 MG TABLET PO SCH (08:33)
[2019-09-16] MEDS: allopurinoL 300 MG TAB PO SCH (08:33)
[2019-09-16] MEDS: METOPROLOL SUCC 25MG EXT REL TAB PO SCH (08:34)
--- NOTE | 2019-09-16 12:20 | Orthopedic Progress Note ---
Date of Service September 16, 2019 Assessment & Plan (1) Neurogenic claudication due to lumbar spinal stenosis: This time we will continue physical therapy monitor his KATI output anticipate discharge home in the next few days. Present on Admission?: Yes Subjective Back pain controlled leg symptoms markedly improved. Physical Exam Physical Exam: Patient is in the chair at the bedside. Skin strength testing. Appears comfortable. Results & Data Vital Signs (Past 12 Hours) Vital Signs Temp Pulse Resp BP Pulse Ox 09/16/19 11:28 36.4 C L 57 L 16 115/72 99 09/16/19 07:29 36.3 C L 57 L 16 114/69 95 09/16/19 03:05 36.4 C L 55 L 16 121/76 93
[2019-09-16] MEDS: ROSUVASTATIN CALCIUM 10 MG TAB PO SCH (16:33)
[2019-09-16] MEDS: TRAMADOL HCL 50 MG TABLET PO PRN (21:38)
[2019-09-16] MEDS: TRAZODONE HCL 50 MG TAB PO SCH (21:39)
[2019-09-16] MEDS: DOCUSATE SODIUM/SENNA 50/8.6MG TAB PO SCH (21:40)
[2019-09-16] MEDS: TEMAZEPAM 15 MG CAPSULE PO SCH (21:42)
[2019-09-17] MEDS: POLYETHYLENE (MIRALAX) 17 GM PACK PO SCH ×4 (05:46→23:55)
[2019-09-17] MEDS: LEVOTHYROXINE SODIUM 50 MCG TABLET PO SCH (05:46)
[2019-09-17] MEDS: TRAMADOL HCL 50 MG TABLET PO PRN ×3 (07:40→21:30)
[2019-09-17] MEDS: risperiDONE 3 MG TABLET PO SCH (07:41)
[2019-09-17] MEDS: allopurinoL 300 MG TAB PO SCH (07:42)
[2019-09-17] MEDS: METOPROLOL SUCC 25MG EXT REL TAB PO SCH (07:43)
--- NOTE | 2019-09-17 15:20 | Orthopedic Progress Note ---
Date of Service September 17, 2019 Assessment & Plan (1) Neurogenic claudication due to lumbar spinal stenosis: This time we will continue physical therapy monitor his KATI output anticipate discharge home tomorrow. Present on Admission?: Yes Subjective Back pain controlled leg pain markedly improved. Physical Exam Physical Exam: Patient is good strength testing ambulating halls. Results & Data Vital Signs (Past 12 Hours) Vital Signs Temp Pulse Pulse Resp BP 09/17/19 07:43 57 L 09/17/19 07:32 36.4 C L 64 16 135/80
[2019-09-17] MEDS: ROSUVASTATIN CALCIUM 10 MG TAB PO SCH (16:57)
[2019-09-17] MEDS: TRAZODONE HCL 50 MG TAB PO SCH (21:31)
[2019-09-17] MEDS: DOCUSATE SODIUM/SENNA 50/8.6MG TAB PO SCH (21:31)
[2019-09-17] MEDS: TEMAZEPAM 15 MG CAPSULE PO SCH (21:31)
[2019-09-18] MEDS: LEVOTHYROXINE SODIUM 50 MCG TABLET PO SCH (06:02)
[2019-09-18] MEDS: POLYETHYLENE (MIRALAX) 17 GM PACK PO SCH (06:32)
[2019-09-18] MEDS: risperiDONE 3 MG TABLET PO SCH (08:19)
[2019-09-18] MEDS: allopurinoL 300 MG TAB PO SCH (08:19)
[2019-09-18] MEDS: METOPROLOL SUCC 25MG EXT REL TAB PO SCH (08:19)
--- NOTE | 2019-09-18 09:51 | Discharge Summary ---
Date of Service September 18, 2019 Admission HPI Per Admitting Provider This is a 59-year-old male who presents with worsening back and leg pain. Failing extensive course of nonoperative care is here for surgical invention. Principal Diagnosis Lumbar spinal stenosis with neurogenic claudication Discharge Data Allergies Allergy/AdvReac Type Severity Reaction Status Date / Time Qofkwep-Maw-Vas Reductase AdvReac Intermediate MUSCLE Verified 09/15/19 12:10 Inhibitor ACHES Consultations 09/15/19 17:15 Consult Case Management - Discharge Planning Routine Procedures Performed Operation Date: 09/15/19 13:55 Actual Procedures p L4-L5 Decompression and Fusion,placement of peek cage at L4-L5, use of osteoamp, use of Infuse, Spinal Cord Monitoring(Not Applicable) - Deo Akers DO s L5-S1 Hardware Removal(Not Applicable) - Deo Akers DO Ordered Studies 09/15/19 13:55 FL fluoroscopy <1hr Routine FL lumbar spine 2-3V Routine Hospital Course (1) Neurogenic claudication due to lumbar spinal stenosis: Patient with lumbar decompression fusion tolerated so was taken to orthopedic for postoperative. Postop day 1 he was up and ambulating briskly postoperative postop day #2 on postop day 3 KATI drain decreasing probably. Bowels working well. Pain well controlled. Neurologically intact. Subsequent discharge home. Discharge orders instructions from the chart for further review. Total Time Total Time Spent Total Time Spent (In Minutes): 20 minutes Discharge Plan Discharge Items Patient Disposition: Home - Self-Care Reason For Visit: Low Back Pain Discharge Diagnosis: Lumbar spinal stenosis with neurogenic claudication Activity: Per Instructions section Non-emergency contact: Primary Care Provider Call non-emergency contact if: you have any medication questions Follow-up/Referrals: Ronnie Candelaria MD [Primary Care Provider] - Diet: Regular Addtl Attending Provider Instructions: ACTIVITY RECOMMENDATIONS: SELF CARE INSTRUCTIONS AFTER THORACIC/LUMBAR FUSIONS 1. You may walk to your tolerance. It is good exercise for your legs and back. Expect some back and intermittent leg aches and pains. 2. You may perform "counter-top" level activities (make a sandwich, hernan with a project, etc.). 3. No bending or lifting of more than 10 pounds or back twisting of any nature (roll like a log when turning in bed). 4. You may ride in a car for 20-30 minutes at a time. No driving until after your first visit with your doctor. 5. Frequent changes of position and restricting sitting to 30 minutes at a time will help limit the amount of back spasms and stiffness you may experience. 6. You may discontinue the use of ambulatory aids (cane, crutches, etc.) once your strength and confidence allow. 7. You may stand grinder the shower and let water strike your incision when you arrive home at least once daily. Do not take a tub bath, sit in a hot tub or go into a swimming pool until after your first recheck in the office. SPECIAL CARE INSTRUCTIONS: VERY IMPORTANT TO READ AND REVIEW A. Your surgical incision has been closed with a cosmetic suture under the skin that will dissolve in about 6 weeks. In 14 days, you can use a pair of clean scissors and cut the suture that is left outside of the skin at the ends of your incision. 1. The small skin tapes can be removed 7 days after surgery if they have not fallen off by that point. 2. You may keep the wound open to air as much as possible to promote healing after post-op day number 5 unless told otherwise by your doctor. 3. If you think the wound looks like it is becoming infected (redness or worsening drainage) and/or you are experiencing fever, chill or worsening back pain and muscle spasms, contact the office so that we may evaluate you as soon as possible. B. Complications are uncommon, but please contact us if you have any signs or symptoms of: 1. wound infection (fever higher than 102.5 degrees F, redness, separation of wound, drainage, or increasing pain from the incision) 2. blood clots in legs (pain, swelling, redness and warmth in legs) 3. urinary tract infection (fever higher than 102.5 degrees F, burning upon urination or increased frequency of urination) 4. nerve problems (inability to walk on your toes or heels, numbness, loss of bowel or bladder control) 5. any other symptoms that concern you C. Please call the office at if you have any concerns or questions about your operation or recovery. D. No smoking! Smoking drastically decreases the chance of a solid fusion. E. Do not take any anti-inflammatory medications (Indocin, Advil, Motrin, Aspirin, Naprosyn, etc.) as these may inhibit the chance of a solid fusion. Tylenol is okay to take for pain. MANAGING PAIN AFTER SPINAL SURGERY 1. Narcotic medication is intended for short-term use and will be provided for surgical pain. Surgical pain usually lasts for a period of 4-6 weeks. Narcotic medication includes Percocet, Vicodin, Darvocet, Tylenol #3 or Lortab. 2. Longer-term pain is more appropriately treated with non-narcotic medication such as Tylenol ES. 3. Muscle spasm is not appropriately treated with narcotics. Muscle relaxers such as Soma, Flexeril or Skelaxin can be used along with Tylenol ES. 4. Remember that we all live with some "aches and pains". This is not unusual or uncommon after an injury or as we get older. a. Back pain is expected and may include muscle spasms for 4 to 6 weeks after surgery. The pain should gradually improve. If the pain worsens for no apparent reason, please contact the office. b. Intermittent leg pain may also be experienced and should not be concerned about unless it worsens for no apparent reason. If so, please contact the office. 5. We will provide appropriate medication within the normal guidelines of their prescribed use. We will also be very cautious and aware of potential abuse and extended duration of patients' medication needs. a. Pain medications are for your comfort and to assist with sleep and rest so that the tissue can heal. They are not provided in order to return to normal activity and should not be used through the day. To do so or worsening pain at night can result from ongoing tissue damage and development of tolerance to the prescribed medicine. 6. Please allow 2-3 days to process refills. Prescriptions will not be mailed but must be picked up at the office. FOLLOW UP VISIT: Keep your scheduled follow-up appointment. Any questions, please call the office at . Pending Studies at Discharge: No Stand-Alone Forms: My [employer], Smoking Cessation Medications and DC Order Prescriptions: New tramadol 50 mg tablet 50 mg PO Q6H PRN (Reason: pain, moderate) Qty: 30 RF: 0 oxycodone 5 mg tablet 5 mg PO Q6H PRN (Reason: pain, severe) Qty: 30 RF: 0 Continued cyanocobalamin (vitamin B-12) 1,000 mcg Tablet 1,000 mcg PO QAM Qty: 0 RF: 0 folic acid 400 mcg Tablet 0.4 mg PO QAM Qty: 0 RF: 0 allopurinol 300 mg tablet 300 mg PO QAM Qty: 90 RF: 3 levothyroxine 50 mcg tablet 50 mcg PO QAM 90 Days Qty: 90 RF: 0 temazepam 30 mg capsule 30 mg PO HS Qty: 90 RF: 0 okdsptew-uywkjhxkc-KA 3.5-10,000-1 mg/mL-unit/mL-% solution 4 drops OT Q8H Qty: 10 RF: 0 trazodone 150 mg Tablet 75 mg PO HS RF: 0 rosuvastatin 10 mg Tablet 10 mg PO QDD RF: 0 risperidone 3 mg tablet 3 mg PO QAM RF: 0 metoprolol succinate 25 mg tablet extended release 24 hr 25 mg PO QAM RF: 0 Discharge Orders: Discharge Order (Routine); Ordered 09/18/19 Ordered By: Deo Akers Admission Data Admit Date/Time: 09/15/19 16:11 Attending Provider: Deo Akers Admit Provider: Deo Akers Primary Care Provider: Ronnie Candelaria Other Interventions: Discharge Summary Assessment (RN) Last Done: 09/18/19 09:37
== END 2019-09-18 12:14 | disposition home or self-care (01) | DRG 455 ==
LOC: ASU 11:46 → 3E 16:11

== ENCOUNTER 2021-07-10 05:38 | Observation (INO) ==
--- NOTE | 2021-06-18 08:57 | PAT Medication Instructions ---
Medication Instructions Date of Service June 18, 2021 Home Medications Medication Instructions Recorded allopurinol 300 mg tablet 300 mg PO QAM #90 tab 06/01/20 Spacer for Inhaler 1 ea .ROUTE .COMPLEX #1 ea 07/21/20 albuterol sulfate 90 mcg/actuation 2 puff INHALATION Q6H PRN #8.5 g 07/21/20 aerosol inhaler (ProAir HFA) risperidone 2 mg tablet 2 mg PO QAM #90 tab 10/12/20 levothyroxine 75 mcg tablet 75 mcg PO QAM 90 Days #90 tab 12/18/20 trazodone 150 mg tablet 75 mg PO HS #45 tab 03/16/21 metoprolol succinate 25 mg 25 mg PO QAM #90 tab 03/26/21 tablet,extended release 24 hr temazepam 15 mg capsule 15 mg PO ONCE PRN #90 cap 06/07/21 allopurinol 300 mg tablet 300 mg PO QAM albuterol sulfate 90 mcg/actuation aerosol inhaler (ProAir HFA) 2 puff INHALATION Q6H PRN risperidone 2 mg tablet 2 mg PO QAM levothyroxine 75 mcg tablet 75 mcg PO QAM trazodone 150 mg tablet 75 mg PO HS metoprolol succinate 25 mg tablet,extended release 24 hr 25 mg PO QAM temazepam 15 mg capsule 15 mg PO ONCE PRN acetaminophen 500 mg tablet 1,000 mg PO Q6H PRN benztropine 1 mg tablet 1 mg PO HS fluticasone propionate 50 mcg/actuation nasal spray,suspension 2 spray INTRANASAL QAM naproxen sodium 220 mg capsule (Aleve) 440 mg PO BID PRN ASK your surgeon for instructions naproxen sodium 220 mg capsule (Aleve) 440 mg PO BID PRN Take morning of surgery With a small sip of water, OTHERWISE NOTHING TO EAT OR DRINK AFTER MIDNIGHT: allopurinol 300 mg tablet 300 mg PO QAM albuterol sulfate 90 mcg/actuation aerosol inhaler (ProAir HFA) 2 puff INHALATION Q6H PRN (use if needed; please bring rescue inhaler with you to hospital day of surgery if possible) risperidone 2 mg tablet 2 mg PO QAM levothyroxine 75 mcg tablet 75 mcg PO QAM metoprolol succinate 25 mg tablet,extended release 24 hr 25 mg PO QAM acetaminophen 500 mg tablet 1,000 mg PO Q6H PRN (okay to take up to 4 hours prior to surgery if needed) fluticasone propionate 50 mcg/actuation nasal spray,suspension 2 spray INTRANASAL QAM Take evening before surgery albuterol sulfate 90 mcg/actuation aerosol inhaler (ProAir HFA) 2 puff INHALATION Q6H PRN (if needed) trazodone 150 mg tablet 75 mg PO HS temazepam 15 mg capsule 15 mg PO ONCE PRN (if needed) acetaminophen 500 mg tablet 1,000 mg PO Q6H PRN (if needed) benztropine 1 mg tablet 1 mg PO HS Other Notes If you have any questions please call us at [phone] or [phone] or [phone] or [phone]
--- NOTE | 2021-06-21 11:35 | Anesthesiology Consultation ---
Date of Service June 21, 2021 Assessment & Plan (1) Encounter for pre-operative examination: - COVID screening: Per assessment on 06/21: Travel screen negative, no known COVID-19 positive contacts or current COVID-19 related symptoms. Patient vacc inated. Surgeon arranging preop COVID testing. Awaiting results. - S/P L4-L5 decompression/fusion, hardware removal (09/15/19): Grade view 1, MAC#3, ETT 7.5 at [facility] Chart Review Chart Review: Acceptable Risk for Surgery and Patient seen in Pre Admission Testing Teaching & Discussion Pre-Anesthesia Teaching/Discussion Notes: Instructed NPO after midnight before surgery,except medications with 15 cc of water. Medication instructions provided according to the PAT guidelines. History Surgery Operation Date: 07/10/21 07:30 Proposed Procedures p Laparoscopic Robotic Assisted Radical Retropubic Prostatectomy Possible Open Possible Pelvic Lymph Node Dissection, Possible Suprapubic Tube Placement - Ricky Thompson MD Height/Weight Height: 5 ft 10 in Weight: 115.8 kg Allergies Allergy/AdvReac Type Severity Reaction Status Date / Time Dsffefe-ULL-VgU Reductase AdvReac Intermediate Muscle Verified 06/21/21 10:32 Inhibitor aches [Zwhvjno-Eqs-Rmi Reductase Inhibitor] Medications Home Medications Medication Instructions Recorded Confirmed Last Taken allopurinol 300 mg tablet 300 mg PO QAM #90 tab 06/01/20 06/11/21 Unknown Spacer for Inhaler 1 ea .ROUTE .COMPLEX #1 ea 07/21/20 06/11/21 Unknown albuterol sulfate 90 mcg/actuation 2 puff INHALATION Q6H PRN #8.5 g 07/21/20 06/11/21 Unknown aerosol inhaler (ProAir HFA) risperidone 2 mg tablet 2 mg PO QAM #90 tab 10/12/20 06/11/21 Unknown levothyroxine 75 mcg tablet 75 mcg PO QAM 90 Days #90 tab 12/18/20 06/11/21 Unknown trazodone 150 mg tablet 75 mg PO HS #45 tab 03/16/21 06/11/21 Unknown metoprolol succinate 25 mg 25 mg PO QAM #90 tab 03/26/21 06/11/21 Unknown tablet,extended release 24 hr temazepam 15 mg capsule 15 mg PO ONCE PRN #90 cap 06/07/21 06/11/21 Unknown acetaminophen 500 mg tablet 1,000 mg PO Q6H PRN 06/11/21 06/11/21 Unknown benztropine 1 mg tablet 1 mg PO HS 06/11/21 06/11/21 Unknown fluticasone propionate 50 2 spray INTRANASAL QAM 06/11/21 06/11/21 Unknown mcg/actuation nasal spray,suspension naproxen sodium 220 mg capsule 440 mg PO BID PRN 06/11/21 06/11/21 Unknown ([place]) Past Medical History Medical History Allergic rhinitis Anxiety Arthralgia Benign essential hypertension Cancer BCC (s/p excision- chest) Depression Folic acid deficiency anemia Gout Hearing loss of both ears due to cerumen impaction History of bronchitis Remote, reason for inhaler rx (not recently used/no recent issues) Hypercholesterolemia Hypothyroidism Insomnia Lesion of skin of nose Lumbar radiculopathy Obesity Osteoarthritis Peripheral neuropathy Prostate cancer Shingles Hx (6 years ago) Tourette's Controlled with risperidone Tremor Hands Urinary frequency Exercise / Class Metabolic Activity II 4-5 Yardwork/Stairs/Walk up hill Past Family History Family History Other Heart disease Past Surgical History Surgical History History of arthroscopy R/L knee History of cardiac cath [place] [place] > no stents, mild luminal irregularities in RCA, no obstructive coronary artery disease History of carpal tunnel release R/L History of colonoscopy History of dental surgery 09/2019 ([facility]) History of esophagogastroduodenoscopy (EGD) History of lumbar fusion L5-S1 decompression/fusion: Grade view 1, MAC#3, ETT 8.0 at [facility] L4-L5 decompression/fusion, hardware removal (09/15/19): Grade view 1, MAC#3, ETT 7.5 at [facility] History of tonsillectomy History of total knee replacement B/L TKA (06/11/18): SAB X3 + PNB, Paramedial level L3 (attempt x 2 midline without success) Hx of basal cell carcinoma excision Chest region Hx of decompression of ulnar nerve Right Hx of rotator cuff surgery Left Past Anesthesia History No Hx of Anesthesia Complications and No Family Hx of Anesthesia Complications History of PONV No Hx of PONV and No Hx of Motion Sickness Social History Smoking Status: Never smoker Do You Dip or Chew Tobacco: No Hx Alcohol Use: Yes Alcohol type: beer alcohol intake frequency: 3 or more drinks per day (2-3 (at most 4) beers/day (evenings)) Hx Substance Use: No substance use type: does not use Review of Systems Patient denies chest pain, shortness of breath, dyspnea on exertion, fever, chills, cough, wheezing, palpitations. Physical Exam Vital Signs VITALS BP 118/76 P 64 TEMP 98.1 SP02 97%RA RESP 16 PHYSICAL Full cervical extension range of motion. Full TMJ range of motion. TMD 4 finger breaths Mallampati Score 3 Dentition: lower full denture Lungs: clear throughout to auscultation Cardiac: regular rate and rhythm, no murmurs noted Spine: normal Carotid arteries: negative bruit Extremities: no edema Lab Results Anesthesia Preop Results Results Anesthesia Widget: WBC 4.90 K/uL (4.8-10.8) 06/21/21 Hgb 15.1 g/dL (14.0-18.0) 06/21/21 Hct 43.2 % (42-52) 06/21/21 Plt 231 K/uL (130-400) 06/21/21 Na 136 mmol/L (136-145) 06/21/21 K 3.6 mmol/L (3.5-5.1) 06/21/21 Cl 107 mmol/L (98-107) 06/21/21 CO2 24 mmol/L (21-32) 06/21/21 BUN 7 mg/dl (7-18) 06/21/21 Creat 1.09 mg/dl (0.6-1.4) 06/21/21 Glucose Level 103 mg/dl (70-99) H 06/21/21 Urine Color Yellow 06/21/21 Urine Appearance Clear (Clear) 06/21/21 Urine pH 5.0 (4.5-7.5) 06/21/21 Urine Specific [place] 1.009 (1.000-1.030) 06/21/21 Urine Protein Negative (Negative) 06/21/21 Urine Glucose (UA) Negative (Negative) 06/21/21 Urine Ketones Negative (Negative) 06/21/21 Urine Blood Negative (Negative) 06/21/21 Urine Nitrite Negative (Negative) 06/21/21 Urine Bilirubin Negative (Negative) 06/21/21 Urine Urobilinogen Negative (Negative) 06/21/21 Urine Leukocyte Esterase Negative (Negative) 06/21/21 Blood Type AB Positive 06/21/21 Antibody Screen NEGATIVE 06/21/21 Testing Electrocardiogram Date: 06/21/21 SB at 57bpm. NS TWA. Chest X-Ray Date: 12/22/20 Findings: + NAD Stress Test Date: 03/09/18 Type: DSE Resting EF: 64% Resting LV Function: mildly abnormal (Grade I) Normal rate and BP response to dobutamine infustion, but did have chest discomfort during peak infusion. All discomfort resolved in recovery. No significant ST changes noted during peak infusion. Occasional PVC's were noted with stress. Occasional PAC's were noted during stress. The stress test was terminated due to target heart rate being achieved. Mild TR Cardiac Catheterization Date: 04/09/18 Mild luminal irregularities in RCA. No obstructive coronary artery disease. S/P uncomplicated right radial artery access.
[2021-07-10] MEDS ORDERED: HEPARIN SOD 5,000 UNIT/0.5 ML VIAL SQ SCH (06:00)
[2021-07-10] MEDS ORDERED: LACTATED RINGER'S 1,000 ML IV SCH (06:00)
[2021-07-10] MEDS ORDERED: MIDAZOLAM HCL 1 MG/ML 2ML VIAL ONE (06:51)
[2021-07-10] MEDS ORDERED: fentaNYL citrate 100 MCG/2 ML VIAL ONE (06:51)
[2021-07-10] MEDS ORDERED: HYDROmorphone INJ 2 MG/ML SYR/VIAL ONE (06:51)
[2021-07-10] MEDS ORDERED: ONDANSETRON INJ 2 MG/ML 2 ML VIAL IV PRN ×2 (07:15→12:35)
[2021-07-10] MEDS ORDERED: PROMETHAZINE HCL 12.5 MG in SODIUM CHLORIDE 0.9% 50 ML IV PRN (07:15)
[2021-07-10] MEDS ORDERED: ePHEDrine sulfate 50 MG/ML AMP IV PRN (07:15)
[2021-07-10] MEDS ORDERED: ATROPINE SULFATE 0.1 MG/ML 10ML SYR IV PRN (07:15)
--- NOTE | 2021-07-10 07:19 | History & Physical Report ---
Date of Service July 10, 2021 Assessment & Plan (1) Prostate cancer: Plan: Prostate cancer all positive cores on right side plan for robotic prostatectomy History of Present Illness Primary Care Provider: Ronnie Candelaria MD Prostate cancer presenting for prostatectomy Allergies Allergy/AdvReac Type Severity Reaction Status Date / Time Xjwecis-WSN-ZsY Reductase AdvReac Mild Muscle Verified 07/10/21 07:19 Inhibitor aches [Fknhaum-Lhw-Reg Reductase Inhibitor] Home Medications Medication Instructions Recorded Confirmed Type Spacer for Inhaler 1 ea .ROUTE .COMPLEX #1 ea 07/21/20 07/10/21 Rx albuterol sulfate 90 mcg/actuation 2 puff INHALATION Q6H PRN #8.5 g 07/21/20 07/10/21 Rx aerosol inhaler (ProAir HFA) risperidone 2 mg tablet 2 mg PO QAM #90 tab 10/12/20 07/10/21 Rx levothyroxine 75 mcg tablet 75 mcg PO QAM 90 Days #90 tab 12/18/20 07/10/21 Rx trazodone 150 mg tablet 75 mg PO HS #45 tab 03/16/21 07/10/21 Rx metoprolol succinate 25 mg 25 mg PO QAM #90 tab 03/26/21 07/10/21 Rx tablet,extended release 24 hr temazepam 15 mg capsule 15 mg PO ONCE PRN #90 cap 06/07/21 07/10/21 Rx acetaminophen 500 mg tablet 1,000 mg PO Q6H PRN 06/11/21 07/10/21 History benztropine 1 mg tablet 1 mg PO HS 06/11/21 07/10/21 History fluticasone propionate 50 2 spray INTRANASAL QAM 06/11/21 07/10/21 History mcg/actuation nasal spray,suspension naproxen sodium 220 mg capsule 440 mg PO BID PRN 06/11/21 07/10/21 History (Aleve) allopurinol 300 mg tablet 300 mg PO QAM #90 tab 07/06/21 07/10/21 Rx Past Med/Surg History Medical History Allergic rhinitis Anxiety Arthralgia Benign essential hypertension Cancer BCC (s/p excision- chest) Depression Folic acid deficiency anemia Gout Hearing loss of both ears due to cerumen impaction History of bronchitis Remote, reason for inhaler rx (not recently used/no recent issues) Hypercholesterolemia Hypothyroidism Insomnia Lesion of skin of nose Lumbar radiculopathy Obesity Osteoarthritis Peripheral neuropathy Prostate cancer Shingles Hx (6 years ago) Tourette's Controlled with risperidone Tremor Hands Urinary frequency Surgical History History of arthroscopy R/L knee History of cardiac cath 04/2018 ([facility] [place]) > no stents, mild luminal irregularities in RCA, no obstructive coronary artery disease History of carpal tunnel release R/L History of colonoscopy History of dental surgery 09/2019 ([facility]) History of esophagogastroduodenoscopy (EGD) History of lumbar fusion L5-S1 decompression/fusion: Grade view 1, MAC#3, ETT 8.0 at [facility] L4-L5 decompression/fusion, hardware removal (09/15/19): Grade view 1, MAC#3, ETT 7.5 at [facility] History of tonsillectomy History of total knee replacement B/L TKA (06/11/18): SAB X3 + PNB, Paramedial level L3 (attempt x 2 midline without success) Hx of basal cell carcinoma excision Chest region Hx of decompression of ulnar nerve Right Hx of rotator cuff surgery Left Family History Other Heart disease Social History (Updated 06/11/21 @ 12:03 by Leia Magana RN) Smoking Status: Never smoker Second Hand Exposure: No; Do You Dip or Chew Tobacco: No; Hx Alcohol Use: Yes Alcohol type: beer Hx Substance Use: No Preferred Language: [place] Communication Ability: Effective Visual Impairment: No Limitations Engineering Vice President Required: No Beliefs That Will Affect Care: None marital status: Current Living Situation: Spouse current occupational status: employed current occupation: FACILITY COORDINATOR [employer] Other Information That Helps Us Care for You: No Feels Safe at Home: Yes Safety Concerns: Feels Safe At This Time Assistive Devices: Denture - Lower and Glasses Physical Exam Constitutional: well developed and well nourished Neck: neck nontender Respiratory: normal respiratory effort; no respiratory distress and does not use accessory muscles Cardiovascular: Rate/Rhythm: regular rate Vessels: radial pulses present Extremities: no edema Gastrointestinal (Abdomen): Inspection/Auscultation: abdomen normal to inspection Percussion/Palpation: abdomen soft; abdomen nontender and no guarding Musculoskeletal: Head/Neck/Chest: normocephalic and head atraumatic Extremities: extremities normal to inspection Skin: no rashes and no lesions Trauma: no evidence of skin trauma Neurologic: awake; not obtunded Speech / Cognition: normal speech Motor/Sensory: no tremor Psychiatric: Orientation: alert and oriented x 3 Genitourinary: no CVA tenderness Lymphatic: no lymphadenopathy Results & Data ([facility]) Vital Signs (Past 12 Hours) Vital Signs Temp Pulse Resp BP Pulse Ox 07/10/21 05:58 36.6 C 72 20 136/93 95
[2021-07-10] MEDS ORDERED: BUPIVACAINE 0.5 % 5 MG/1 ML MPF 30ML VIAL ONE (07:22)
[2021-07-10] MEDS ORDERED: BELLADONNA/OPIUM SUPP 60 MG SUPP PR ONE ×2 (07:50→08:35)
[2021-07-10] MEDS ORDERED: LARYING-O-JET KIT (LTA) ONE (07:51)
[2021-07-10] MEDS ORDERED: ONDANSETRON INJ 2 MG/ML 2 ML VIAL ONE (07:51)
[2021-07-10] MEDS ORDERED: PROPOFOL IV EMULSION 10 MG/ML 20 ML VIAL IV ONE (07:51)
[2021-07-10] MEDS ORDERED: ROCURONIUM BROMIDE 10 MG/ML 5 ML VIAL IV ONE (07:51)
[2021-07-10] MEDS ORDERED: LIDOCAINE 2% 2 ML VIAL/AMP(20MG/ML) INFIL ONE (07:51)
[2021-07-10] MEDS ORDERED: DEXAMETHASONE SOD INJ 4 MG/ML VIAL ONE (07:51)
[2021-07-10] MEDS ORDERED: SURGICEL ABSORB HEMOSTAT 2IN X 14IN TOP ONE (08:51)
[2021-07-10] MEDS ORDERED: GLYCOPYRROLATE 0.2 MG/ML VIAL ONE (10:05)
[2021-07-10] MEDS ORDERED: NEOSTIGMINE METHYLSULFATE 1 MG/ML 10ML VIAL ONE (10:05)
[2021-07-10] MEDS ORDERED: FLOSEAL HEMOSTATIC MATRIX 10ML TOP ONE (10:16)
--- NOTE | 2021-07-10 10:58 | Operative Report ---
PG Post Operative Report Pre & Post Diagnosis Operation Date: 07/10/21 07:30 Pre-Op Diagnosis: Prostate Cancer Post-Op Diagnosis: Prostate Cancer I identified the patient and participated in the time-out.: Yes Procedure Operation Date: 07/10/21 07:30 Actual Procedures p Laparoscopic Robotic Assisted Radical Retropubic Prostatectomy, Pelvic Lymph Node Dissection(Not Applicable) - Ricky Thompson MD Surgeon Clay Thompson MD Transmitter Supervisor none Estimated Blood Loss 150 Findings Consistent with Post-Op Diagnosis Specimens 1. Periprostatic fat 2. Left obturator lymph nodes 3. Right obturator lymph nodes 4. Prostate and seminal vesicles Description of Procedure The patient was identified in the preoperative holding area, appropriate informed consents were reviewed and completed, and he was transported to the operating suite. Subcutaneous heparin was administered in the pre-operative holding area. Upon arrival in the operating suite, he received appropriate antibiotics and general anesthesia. He was positioned in dorsal lithotomy, a B&O suppository was inserted after digital rectal exam, and he was prepped and draped in standard fashion. A He catheter was inserted in the sterile field. A Veress needle was passed per umbilicus with uniform insufflation of the abdomen to 15mmHg. He was placed in steep Trendelenburg position. A periumbilical incision was then made to accommodate a 12mm Visiport with 10mm 0degree laparoscope. Inspection of the abdomen was carried out, and there was no evidence of traumatic entry or injury secondary to the Veress needle. After confirming a clear anterior abdominal wall, ports were subsequently placed in standard robotic prostatectomy fashion without incident. To begin the robotic portion of the case, the left lateral aspect of the sigmoid was mobilized off of the left pelvic side wall to allow the pouch of Ramo to be appropriately visualized. I then made an incision in the pouch of Ramo, overlying the seminal vesicles. Both SVs as well as the ampullae of the vasa were entirely dissected, with the vasa transected 3cm from the prostate. The medial umbilical ligaments were then controlled with bipolar electrocautery just inferior to the umbilicus. Following cauterization, they were divided utilizing monopolar cautery. A peritoneal incision was carried from this location to the medial aspect of the internal inguinal rings bilaterally with care to avoid opening through the ring. This incision was concluded when the vas deferens was reached. Dissection of the bladder and prostate off of the posterior aspect of the pubic arch was completed allowing full visualization of the prostate. The fat overlying the prostate was removed en bloc and passed off the table as a specimen labeled "periprostatic fat". The endopelvic fascia was cleared during this portion of the procedure, and subsequently opened - first on the right and then the left. The incision through the endopelvic fascia began near the prostate-bladder junction and was carried to the apex with extreme care to preserve all lateral levator musculature as well as the periurethral musculature and sphincter complex. I additionally preserved the puboprostatic ligaments. I then controlled the DVC with a 3-0 V-lock suture in overlapping/figure of 8 fashion. The lymph node dissection was then conducted. External iliac vessels were identified on the pelvic side wall. The packet of fat and lymphatic tissue that resides just under the iliac vein was elevated and off of the vein with a split and roll technique. The packet was dissected laterally to the circumflex vein and distally to the obturator nerve which was preserved. The proximal aspect of the packet was carried towards the bifurcation of the iliac vessels. A combination of monopolar and bipolar cautery were used to assist with control. After completing the dissection on both sides, the packets were collected and passed off of the table as specimens labeled "pelvic lymph nodes". My attention then returned to the prostate, with identification of the bladder neck aided by gentle traction on the He catheter and lateral to medial pressure at the presumed level of the bladder neck with the robotic instruments. An anterior cystotomy was made, the He balloon deflated and the catheter guided through the incision to allow anterior retraction. I attempted to preserve maximal bladder neck musculature as I circumferentially dissected around the bladder neck. After incision through the posterior aspect of the mucosa, the dissection was carried through detrusor muscle until the bilateral ampullae of the vasa were identified. The previously dissected vasa and SVs were brought through the incision and used to elevated the prostate anteriorly. A posterior plane behind the prostate was then developed - splitting Denonvilliers's fascia. This dissection was carried as far as possible towards the apex as well as far as possible laterally. An incision in the lateral prostatic fascia was then made bilaterally to facilitate control of the vascular pedicles and cautious preservation of the nerve bundles. Vasculature running along the posterior/lateral aspect of the prostate was preserved as well as the tissue containing the nerves. The pedicles were then controlled with a series of Weck clips. The apical attachments of the prostate were remaining at that stage. The DVC was divided after control with bipolar cautery over the prostate. Continuous inspection from anterior and lateral views allowed me to closely follow the apical contour of the prostate and maximally preserve urethral length and tissue. The prostate was entirely freed at that point, and collected in an EndoCatch bag before being moved out of the field of vision. Hemostasis was confirmed and anastomosis of the bladder and urethra was completed utilizing a double armed V- Lock stitch. A new He catheter was inserted and the anastomosis tested with irrigation. There was no evidence of leak. A archana style stitch was placed bilaterally to functionally marsupialize the area of the lymph node dissection. The robot was undocked, the specimen extracted through expansion of the rafael- umbilical camera port. The fascia was closed with a series of 0-PDS figure of 8 stitches. The right assistant broker port was closed in two layers - with a figure of 8 0-Vicryl to reapproximate the fascia followed by 4-0 Monocryl to close the skin. Monocryl was used to close all other skin incisions. All wounds were dressed with Dermabond. The case was concluded and the patient taken to the PACU in stable condition. Tess Donovan assisted from incision to closure. I attest to the content of the Intraoperative Record and any orders documented therein. Any exceptions are noted below.
[2021-07-10] MEDS: HYDROmorphone INJ 1 MG/ML SYRINGE IV PRN ×4 (11:22→11:36)
[2021-07-10 11:27] LABS: Basophils # (auto) 0.01 K/uL (0-0.2); Basophils % (auto) 0.2 %; Eosinophils # (auto) 0.07 K/uL (0-0.5); Eosinophils % (auto) 1.1 %; Hematocrit (blood only) 45.9 % (42-52); Immature Granulocytes # (auto) 0.03 K/uL (0.00-0.02); Immature Granulocytes % (auto) 0.5 %; Lymphocytes # (auto) 1.03 K/uL (1.2-3.4); Lymphocytes % (auto) 16.3 %; Mean Corpuscular Hemoglobin 30.7 pg (25-34); Mean Corpuscular Volume 88.1 fL (80-100); Mean Platelet Volume 9.7 fL (7.4-10.4); Monocytes # (auto) 0.11 K/uL (0.11-0.59); Monocytes % (auto) 1.7 %; Neutrophils # (auto) 5.06 K/uL (1.4-6.5); Neutrophils % (auto) 80.2 %; Platelet Count 197 K/uL (130-400); RDW Coefficient of Variation 12.8 % (11.5-14.5); RDW Standard Deviation 41.4 fL (36.4-46.3); Red Blood Count 5.21 M/uL (4.7-6.1); White Blood Count 6.31 K/uL (4.8-10.8)
[2021-07-10 11:31] LABS: Mean Corpuscular Hgb Conc 34.9 g/dL (32-36)
[2021-07-10 11:48] LABS: BUN Creatinine Ratio 5.5 (10-20); Calcium 8.9 mg/dl (8.5-10.1); Creatinine Clr Calc Pharmacy 83.5 ml/min; Est GFR (African American) 78.9 ml/min; Est GFR (Non-African American) 68.1 ml/min; Potassium 3.8 mmol/L (3.5-5.1)
[2021-07-10] MEDS ORDERED: MoRPHine SULFATE 4 MG/ML 1 ML CARP\\VIAL IV PRN (12:35)
[2021-07-10] MEDS ORDERED: TEMAZEPAM 15 MG CAPSULE PO PRN (12:35)
[2021-07-10] MEDS ORDERED: [UNRECOGNIZED DRUG - OTHER] SCH (12:35)
[2021-07-10] MEDS ORDERED: oxyCODONE HCL IR 5 MG TAB (IMMEDIATE RELEASE) PO PRN ×2 (12:35)
[2021-07-10] MEDS ORDERED: MoRPHine SULFATE 2 MG/ML CARP IV PRN (12:35)
[2021-07-10] MEDS ORDERED: ACETAMINOPHEN 325 MG TAB PO PRN (12:35)
[2021-07-10] MEDS ORDERED: ALBUTEROL HFA 8 GM INHALER INH PRN (13:13)
--- NOTE | 2021-07-10 14:26 | Anesthesiology Progress Note ---
Date of Service July 10, 2021 Anesthesia Post Procedure Vital Signs Vital Signs: Temp Pulse Resp BP Pulse Ox 07/10/21 13:48 36.4 C L 96 H 15 128/82 94 07/10/21 12:50 91 H 16 135/88 98 07/10/21 12:05 90 12 153/93 H 98 07/10/21 11:50 92 H 18 146/95 H 98 07/10/21 11:40 87 18 154/87 H 98 07/10/21 11:30 88 18 151/87 H 97 07/10/21 11:20 86 18 152/89 H 97 07/10/21 11:10 90 20 171/98 H 98 07/10/21 11:00 36.3 C L 94 H 20 153/91 H 100 07/10/21 05:58 36.6 C 72 20 136/93 95 Transfer of Care Handoff Completed per policy Notes Mental Status: alert / awake / arousable Patient Amnestic to Procedure: Yes Nausea / Vomiting: adequately controlled Pain: adequately controlled Airway Patency, RR, SpO2: stable & adequate BP & HR: stable & adequate Hydration State: stable & adequate Anesthetic Complications: no major complications apparent
[2021-07-10] MEDS: LACTATED RINGER'S 1,000 ML IV SCH ×2 (14:55→22:39)
[2021-07-10] MEDS: ceFAZolin 2000MG 2,000 MG/15 ML SYR IV SCH ×2 (15:45→22:39)
[2021-07-10] MEDS ORDERED: PROMETHAZINE HCL 6.25 MG in SODIUM CHLORIDE 0.9% 50 ML IV PRN (16:27)
[2021-07-10] MEDS: HEPARIN SOD 5,000 UNIT/0.5 ML VIAL SQ SCH (21:00)
[2021-07-10] MEDS ORDERED: BENZTROPINE MESYLATE 1 MG TAB PO SCH (21:00)
[2021-07-10] MEDS ORDERED: traZODone HCL 50 MG TAB PO SCH (21:00)
[2021-07-11] MEDS ORDERED: HEPARIN SOD 5,000 UNIT/0.5 ML VIAL SQ SCH (06:00)
[2021-07-11] MEDS ORDERED: LEVOTHYROXINE SODIUM 75 MCG TABLET PO SCH (06:30)
[2021-07-11] MEDS: HEPARIN SOD 5,000 UNIT/0.5 ML VIAL SQ SCH (07:43)
[2021-07-11] MEDS: LACTATED RINGER'S 1,000 ML IV SCH (07:56)
[2021-07-11] MEDS ORDERED: FLUTICASONE PROPIONATE NA SPR 16 GM BTL NAE SCH (09:00)
[2021-07-11] MEDS ORDERED: risperiDONE 2 MG TABLET PO SCH (09:00)
[2021-07-11] MEDS ORDERED: METOPROLOL SUCC 25MG EXT REL TAB PO SCH (09:00)
[2021-07-11] MEDS ORDERED: allopurinoL 300 MG TAB PO SCH (09:00)
[2021-07-11 09:04] LABS: Hemoglobin 14.1 g/dL (14.0-18.0); Immature Granulocytes # (auto) 0.02 K/uL (0.00-0.02); Immature Granulocytes % (auto) 0.2 %; Lymphocytes # (auto) 0.86 K/uL (1.2-3.4); Lymphocytes % (auto) 7.7 %; Mean Corpuscular Hemoglobin 30.7 pg (25-34); Mean Corpuscular Hgb Conc 34.4 g/dL (32-36); Mean Corpuscular Volume 89.1 fL (80-100); Mean Platelet Volume 9.9 fL (7.4-10.4); Monocytes # (auto) 0.73 K/uL (0.11-0.59); Monocytes % (auto) 6.6 %; Neutrophils # (auto) 9.51 K/uL (1.4-6.5); Neutrophils % (auto) 85.5 %; Platelet Count 219 K/uL (130-400); RDW Standard Deviation 42.1 fL (36.4-46.3); White Blood Count 11.12 K/uL (4.8-10.8)
[2021-07-11 09:25] LABS: BUN Creatinine Ratio 7.1 (10-20); Calcium 8.8 mg/dl (8.5-10.1); Creatinine Clr Calc Pharmacy 87.3 ml/min; Est GFR (African American) 83.3 ml/min; Est GFR (Non-African American) 71.9 ml/min; Potassium 4.2 mmol/L (3.5-5.1)
--- NOTE | 2021-07-11 11:59 | Urology Progress Note ---
Date of Service July 11, 2021 Assessment & Plan (1) Prostate cancer: Plan: Postop day #1 status post robotic prostatectomy Recovery on pace Likely discharge home later today if he continues to progress appropriately Admission and Anticipated Discharge Date Admission Date: July 10, 2021 Subjective Doing very well this morning He denies any significant pain or issues He did struggle a bit yesterday afternoon with severe nausea and vomiting and some bladder/lower abdominal discomfort, however around 3 AM and seem like it turned a corner and things were drastically improved Physical Exam Physical Exam: Incisions appropriate, urine clear Results & Data ([facility]) Vital Signs (Past 12 Hours) Vital Signs Temp Pulse Resp BP Pulse Ox 07/11/21 08:03 36.5 C 66 18 129/81 96 07/11/21 04:05 36.8 C 78 20 132/77 96 PG Care Time/CCT Total # of Minutes Spent Total Time Spent with Patient: Total time spent is greater than 50% in coordination of care (as documented) at patient's floor/unit and/or counseling patient: Coding Level of Care Code 91668 Subseq Hosp Care Lvl 2 Diagnoses Prostate cancer C61
--- NOTE | 2021-07-11 12:24 | Discharge Summary ---
Date of Service July 11, 2021 Admission HPI Per Admitting Provider Prostate cancer presenting for prostatectomy Admission Exam Per Admitting Provider See H&P Principal Diagnosis Prostate Cancer Discharge Exam Constitutional well developed and well nourished; no acute distress and not ill appearing Respiratory normal respiratory effort and able to speak in complete sentences; no respiratory distress and no audible wheezes Gastrointestinal (Abdomen) Inspection/Auscultation: abdomen normal to inspection; abdomen not distended Percussion/Palpation: abdomen soft; abdomen nontender and no guarding Skin Incisions appropriate, well approximated without erythema, drainage, or warmth. Psychiatric Orientation: alert, oriented x 3 and cooperative Affect: euthymic affect Genitourinary Levi catheter patent, intact, draining clear yellow urine. Discharge Data Allergies Allergy/AdvReac Type Severity Reaction Status Date / Time Efzgovs-ALL-OdY Reductase AdvReac Mild Muscle Verified 07/10/21 07:19 Inhibitor aches [Koxokgg-Fbn-Wls Reductase Inhibitor] Procedures Performed Operation Date: 07/10/21 07:30 Actual Procedures p Laparoscopic Robotic Assisted Radical Retropubic Prostatectomy, Pelvic Lymph Node Dissection(Not Applicable) - Ricky Thompson MD Hospital Course (1) Prostate cancer: Patient admitted status post robotic laparoscopic-assisted radical retropubic prostatectomy with bilateral pelvic lymph node dissection on 07/10/[address] Thompson. No complications post procedure. He was seen POD#1, feeling well, clinically progressing. Vital signs and post-op labs appropriate and as expected. Pain controlled, tolerating advanced diet, ambulating without dizziness. Discharged home in stable condition POD #1, home with levi catheter. Total Time Total Time Spent Total Time Spent (In Minutes): 10 Discharge Plan Discharge Items Patient Disposition: Home - Self-Care Reason For Visit: Prostate Cancer Discharge Diagnosis: Prostate Cancer Condition on Discharge: Good Activity: Per Instructions section Lifting: No more than 25 pounds Bathing Comment: No tub baths or soaking, okay to shower tomorrow. Sexual Activity: Wait until after follow-up appointment Exercise/Sports: Wait until after follow-up appointment Driving/Machine Use: Do not drive while taking narcotic pain medication Non-emergency contact: Surgeon and Urologist Call non-emergency contact if: your pain is not controlled, your pain is concerning for you, your temperature is above 101, your wound has increased redness, your wound has increased drainage and your wound pain has increased Follow-up/Referrals: Ricky Thompson MD [Physician] - 07/25/21 11:00 am Ronnie Candelaria MD [Primary Care Provider] - Urology,Nurse [FAKE FOR SCHEDULES] - 07/16/21 9:00 am Diet: Regular Addtl Attending Provider Instructions: Please take all medications as prescribed and keep all follow-ups as scheduled. Please call our office at [phone] with any questions, concerns or need to reschedule appointments for any reason. We are happy to assist you We have sent an antibiotic to your pharmacy of choice. Please begin antibiotic as prescribed the day BEFORE your scheduled voiding trial at [facility]. Please continue antibiotic every 12 hours through the day AFTER your voiding trial. Activity: We recommend having someone with you for the first few days after surgery to help care for you. For the first 2 weeks after surgery, we would like you to get up and walk around your house. However, we recommend limit physical activity that would increase your heart rate. This will allow your body to rest and heal. Take naps if you feel tired. Don't lift anything heavier than 10 pounds, mow the law or ride a bicycle until your follow-up appointment. Please avoid long car rides. Home Care: Unless directed otherwise, drink 6 to 8 glasses of water a day (enough to keep your urine light colored). This will also help keep a healthy flow of urine. We recommend using a stool softener for the first two weeks to avoid constipation. Levi Catheter or Suprapubic Catheter care: Keep the catheter well secured with either a leg back or leg strap with large bag. Empty your bag when it's about half full. You may notice some blood in the bag. This is normal after surgery and while the catheter is in place. Use mild soap (such as Dove or Dial) and water to wash the catheter and the head of your penis daily, or more frequently if needed. Return to your normal diet, we encourage good protein intake to promote healing. You may shower as normal. Please avoid tub baths or soaking until catheter removed and incisions well healed. Wearing sweat pants while you have the catheter is recommended, they will be more comfortable. Follow-up Your follow up appointments for having your catheter removed, and follow up with your physician should already be scheduled. If you have any questions regarding this, please contact our office. Your final pathology report will be discussed at your physician follow-up appointment. Call [facility] at [phone] right away if you have any of the following: Chest pain or trouble breathing (call 911 or go to the hospital) Fever of 101F or higher, uncontrolled vomiting Heavy bleeding, clots, or bright red blood from the catheter Catheter that falls out or stops draining Foul-smelling discharge from your catheter Redness, swelling, warmth, or increased pain at your incision site Drainage, pus, or bleeding from your incision Pending Studies at Discharge: Yes Studies:: pathology Stand-Alone Forms: My [facility] [place] [employer], Smoking Cessation Medications and DC Order Prescriptions: New ciprofloxacin HCl 500 mg tablet 500 mg PO BID 3 Days Qty: 6 RF: 0 oxycodone-acetaminophen [Percocet] 5-325 mg tablet 1 tab PO TID PRN (Reason: pain) Qty: 14 RF: 0 docusate sodium [Colace] 100 mg capsule 100 mg PO BID Qty: 60 RF: 0 Continued trazodone 150 mg tablet 75 mg PO HS Qty: 45 RF: 1 metoprolol succinate 25 mg tablet extended release 24 hr 25 mg PO QAM Qty: 90 RF: 3 temazepam 15 mg capsule 15 mg PO ONCE PRN (Reason: sleep) Qty: 90 RF: 0 allopurinol 300 mg tablet 300 mg PO QAM Qty: 90 RF: 3 risperidone 2 mg tablet 2 mg PO QAM Qty: 90 RF: 3 albuterol sulfate [ProAir HFA] 90 mcg/actuation HFA aerosol inhaler 2 puff inhalation Q6H PRN (Reason: shortness of breath or wheezing) Qty: 8.5 RF: 0 Spacer for Inhaler Misc 1 ea .ROUTE .COMPLEX Qty: 1 RF: 0 levothyroxine 75 mcg tablet 75 mcg PO QAM 90 Days Qty: 90 RF: 3 benztropine 1 mg tablet 1 mg PO HS RF: 0 acetaminophen 500 mg Tablet 1,000 mg PO Q6H PRN (Reason: Pain) RF: 0 naproxen sodium [Aleve] 220 mg Capsule 440 mg PO BID PRN (Reason: Pain) RF: 0 fluticasone propionate 50 mcg/actuation [place],Suspension 2 spray INTRANASAL QAM RF: 0 Discharge Orders: Discharge Order (Routine); Ordered 07/11/21 Ordered By: Farzaneh Rodriguez/Other Patient Handouts: Emptying and Cleaning Your ..., ED Levi Catheter, Care Admission Data Admit Date/Time: 07/10/21 11:01 Attending Provider: Ricky Thompson Admit Provider: Ricky Thompson Primary Care Provider: Ronnie Candelaria Other Interventions: Discharge Summary Assessment (RN) Last Done: 07/11/21 14:46 Coding Level of Care Code D/C DAY MANAGEMENT <30 MINS Diagnoses Prostate cancer C61
== END 2021-07-11 16:30 | disposition home or self-care (01) ==
LOC: ASU 05:38 → INTOOBSV 11:01 → PACUINP 11:01 → 3E 14:24
DX: F95.2 Tourette's disorder; E03.9 Hypothyroidism, unspecified; E78.00 Pure hypercholesterolemia, unspecified; M10.9 Gout, unspecified; E66.9 Obesity, unspecified; I10 Essential (primary) hypertension; G62.9 Polyneuropathy, unspecified; Z79.899 Other long term (current) drug therapy; C61 Malignant neoplasm of prostate; Z88.8 Allergy status to other drugs, medicaments and biological substances; Z79.890 Hormone replacement therapy